=== PATIENT | female | born 1965 | race Caucasian/White ===

== ENCOUNTER 2022-01-18 12:54 | Inpatient (IN) ==
[2022-01-18 13:10] LABS: ABG BASE EXCESS 3.7 mmol/L (-2.0-2.0)
[2022-01-18 13:12] LABS: ABG HCO3 32.6 mmol/L (22-26)
--- NOTE | 2022-01-18 13:12 | DR.SOBA ---
[facility] Time Seen Time Seen by Provider: 01/18/22 13:12 Primary Care Physician Primary Care Physician: DR GOMEZ HPI Comment HPI Comment: PATIENT IS 56YR OLD FEMALE WITH HISTORY OF COPD ON HOME O2 3L/M, HTN AND DM IN ER WITH INCREASING SOB, LOW O2 SAT ON OXYGEN AND PRODUCTIVE COUGH AND CONGESTION.SPUTUM CLEAR.O2 SAT IN 60S TODAY. GENERALIZED WEAKNESS, BENOIT DYACHESAND NAUSEA PRESENT. DENIES FEVER, DYSURIA OR VOMITING. NEB TREATMENT HAVE NOT IMPROVED SYMPTOMS. Complaints Chief Complaint Doctors Comments: COUGH, CONGESTION, INCREASING SOB AND LOW O2 SATURATION ON HOME O2 X 4 DAYS. Chief Complaint:: PT C/O PROGRESSIVELY WORSENING SHORTNESS OF BREATH X 4 DAYS DESPITE WEARING HOME OXYGEN AT 3 LITERS. SHE STATES THAT WITH HER OXYGEN THIS MORNING OXYGEN SATURATION WAS 61%. PT ALSO C/O GENERALIZED BODYACHES, NAUSEA, AND PRODUCTIVE COUGH WITH CLEAR SPUTUM COVID-19 Coronavirus risk:travel/contact w/high risk person: No Has patient experienced Coronavirus symptoms: No Reviewed Nurses Notes Reviewed: Yes Source History Provided: Patient Mode of Arrival Mode of Arrival: Ambulatory Timing Onset of Chief Complaint: 01/18/22 Duration Duration: Days Context Onset:: At Rest PE Risk Factors:: None History of:: COPD Currently on:: Inhaled Bronchodilators Prehospital Care:: O2 and Inhaled B2 Modifying Factors Worsens:: Exertion and Lying Flat Improves:: Rest and Sitting Up Associated Signs and Symptoms Associated Signs and Symptoms: Wheeze, Cough, Nasal Congestion, Chest Pain and Leg Swelling If Chest Pain Quality: Pleuritic Location: Right Upper Chest, Right Lower Chest, Left Upper Chest, Left Lower Chest and Substernal PMH PMH Past Medical History: Yes Past Medical History: COPD, Diabetes, Dyslipidemia and Hypertension Past Medical History Comment: CHRONIC UTI, PVD Past Surgical History: Yes Surgical History: Cholecystectomy Past Surgical History Comment: HERNIA REPAIR, STENTS IN LEGS Family History History of Family Medical Conditions: Yes Family Medical History: Hypertension Social History Does patient currently use any type of tobacco product: Yes Have you used tobacco products in the last 12 months: Yes Type of Tobacco Use: Cigarettes Does any household member use tobacco: No Alcohol Use: None Do you use any recreational Drugs:: No Lives With: Family Lives Where: Home Travel Risk Coronavirus risk:travel/contact w/high risk person: No Has patient experienced Coronavirus symptoms: No Infectious screening In the last 2 months have you had wt loss of >10#?: NO Have you had fever, night sweats or hemotysis?: No Have you traveled outside the country in the last 6 months?: No Isolation: Standard ROS Review of Systems Constitutional: See HPI, Weakness and Fatigue Eyes: No Symptoms Reported and See HPI ENTM: See HPI, Nose Discharge and Nose Congestion Respiratoy: See HPI, Productive Cough, Short of Breath and Wheezing Cardiovascular: See HPI, Chest Pain and Edema Gastrointestinal/Abdominal: See HPI and Nausea; negative Abdominal Pain or Vomiting Genitourinary: No Symptoms Reported and See HPI; negative Dysuria Neurological: No Symptoms Reported, See HPI and Weakness; negative Headache or Dizziness Musculoskeletal: See HPI, Muscle Pain and Chest wall Integumentary: No Symptoms Reported and See HPI; negative Rash or Juandice Hematologic/Lymphatic: See HPI and Easy Bruising Endocrine: See HPI and Decreased Appetite; negative Increased Thirst or Increased Urine Psychiatric: No Symptoms Reported and See HPI All Other Systems: Reviewed and Negative PE Vital Signs Vitals: Temperature 98.1 F Pulse Rate 84 Respiratory Rate 35 Blood Pressure 119/56 O2 Sat by Pulse Oximetry 91 General General Appearance: Alert and In Distress Head Head Exam: Normal Inspection and Atraumatic Eyes Eye exam: Normal Appearance; negative Scleral Icterus or Conjunctival Injection ENT ENT Exam: Normal Oropharynx, Normal External Ear Exam and TM's Normal Bilate rally Neck Neck Exam: Normal Inspection and Trachea Midline; negative Tenderness Chest Chest Inspection: Normal Inspection and Symmetric Chest Wall Rise; negative Tenderness Respiratory Respiratory Exam: Accessory Muscle Use and Respiratory Distress; negative Chest Wall Tenderness Respiratory Exam: Bilateral: Wheezing and Bilateral: Rhonchi, Left: Wheezing and Left: Rhonchi, Right: Wheezing and Right: Rhonchi, Upper: Wheezing and Upper: Rhonchi and Lower: Wheezing and Lower: Rhonchi Cardiovascular Cardiovascular Exam: Regular Rate, Normal Rhythm and Normal Heart Sounds; neg ative Systolic Murmur or Diastolic Murmur Abdominal Exam Abdominal Exam: Normal Inspection, Normal Bowel Sounds and Soft; negative Tenderness Extremities Extremities Exam: Normal Capillary Refill and Edema Back Back Exam: Paraspinal Tenderness; negative (R) CVA Tenderness or (L) CVA Tenderness Neurologic Neurological Exam: Alert and Oriented X3; negative Motor Sensory Deficit Psychiatric Psychiatric Exam: Normal Affect and Normal Mood Skin Skin Exam: negative Rash MDM Differential Diagnosis Differential Diagnosis: Bronchitis, CHF, COPD, Dysrhythmia, Hyponatremia, Mycardial Infarction, Pneumonia, Pneumothorax, Respiratory Insufficiency, Sinusitis and URI COURSE Treatment Treatment: SEE ORDERS DONE WHILE PATIENT IN ER. LABS, EKG AND EKG DISCUSSED WITH PATIENT. NEB TREATMENT, IV SOLUMEDROL ANDD PLACED ON BIPAP. ADMITTED TO HOSPITAL. Consultation Consultation Comments: DISCHARGED PATIENT WITH MAK. HE WILL ADMIT PATIENT. Education/Counseling Education/Counseling: Patient Educated On: Diagnosis ROR Labs Reviewed Laboratory Results Reviewed?: Yes Result Diagrams: 01/21/22 05:30 01/21/22 05:30 Laboratory: 01/18/22 15:57 Sputum - Expectorated Sputum Sputum Culture - Final Stenotrophomonas Maltophilia 01/18/22 15:57 Sputum - Expectorated Sputum - Final 01/18/22 17:00 Blood Blood Culture - Preliminary 01/18/22 16:55 Blood Blood Culture - Preliminary WBC 10.2 X10^3/uL (3.6-10.0) H 01/18/22 13:05 RBC 3.37 X10^6/uL (3.5-5.4) L 01/18/22 13:05 Hgb 11.7 g/dL (12.0-16.0) L 01/18/22 13:05 Hct 34.8 % (36.0-47.0) L 01/18/22 13:05 MCV 103.3 fL (80.0-100.0) H 01/18/22 13:05 MCH 34.8 pg (27.0-34.0) H 01/18/22 13:05 MCHC 33.7 g/dL (33.0-35.0) 01/18/22 13:05 RDW 16.0 % (11.6-16.5) 01/18/22 13:05 Plt Count 192 X10^3/uL (150.0-450.0) 01/18/22 13:05 MPV 9.7 fL (7.4-11.0) 01/18/22 13:05 Neut % (Auto) 86.4 % (42.0-75.0) H 01/18/22 13:05 Lymph % (Auto) 8.0 % (21.0-51.0) L 01/18/22 13:05 [place] % (Auto) 4.9 % (0.0-13.0) 01/18/22 13:05 Eos % (Auto) 0.4 % (0.9-2.9) L 01/18/22 13:05 Baso % (Auto) 0.3 % (0.2-1.0) 01/18/22 13:05 Neut # (Auto) 8.8 x10^3/uL (2.2-4.8) H 01/18/22 13:05 Lymph # (Auto) 0.8 X10^3/uL (1.3-2.9) L 01/18/22 13:05 [place] # (Auto) 0.5 x10^3/uL (0.3-0.8) 01/18/22 13:05 Eos # (Auto) 0.0 x10^3/uL (0.0-0.2) 01/18/22 13:05 Baso # (Auto) 0.0 X10^3/uL (0.0-0.1) 01/18/22 13:05 Absolute Nucleated RBC 0.0 /100WBC 01/18/22 13:05 Sample Site Rbra 01/18/22 13:05 ABG pH 7.270 (7.35-7.45) L 01/18/22 13:05 ABG pCO2 71.0 mmHg (35.0-45.0) H* 01/18/22 13:05 ABG pO2 69.0 mmHg (80.0-100.0) L 01/18/22 13:05 ABG HCO3 32.6 mmol/L (22-26) H* 01/18/22 13:05 ABG O2 Saturation 91.0 % (90-100) 01/18/22 13:05 ABG Base Excess 3.7 mmol/L (-2.0-2.0) H 01/18/22 13:05 Marquise Test N/a 01/18/22 13:05 A-a Gradient 99.0 mmHg 01/18/22 13:05 FiO2 36.0 01/18/22 13:05 Blood Gas Comments Pt carlos well elj 01/18/22 13:05 Sodium 137 mmol/L (136-145) 01/18/22 13:05 Corrected Sodium 138 mmol/L (136-145) 01/18/22 13:05 Potassium 5.1 mmol/L (3.5-5.1) 01/18/22 13:05 Chloride 101 mmol/L (98-107) 01/18/22 13:05 Carbon Dioxide 32.7 mmol/L (21-32) H 01/18/22 13:05 BUN 58 mg/dL (7-18) H 01/18/22 13:05 Creatinine 2.60 mg/dL (0.55-1.02) H 01/18/22 13:05 Est GFR (MDRD) Af Amer 24 (>60) L 01/18/22 13:05 Est GFR (MDRD) Non-Af 20 (>60) L 01/18/22 13:05 Glucose 160 mg/dL (65-99) H 01/18/22 13:05 POC Glucose (mg/dL) 153 mg/dL (65-99) H 01/18/22 13:12 Calcium 8.7 mg/dL (8.5-10.1) 01/18/22 13:05 Corrected Calcium 9.7 mg/dL (8.5-10.1) 01/18/22 13:05 Total Bilirubin 0.40 mg/dL (0.2-1.0) 01/18/22 13:05 AST 27 Units/L (15-37) 01/18/22 13:05 ALT 38 Units/L (12-78) 01/18/22 13:05 Alkaline Phosphatase 96 Units/L (46-116) 01/18/22 13:05 Creatine Kinase 160 Units/L (26-192) 01/18/22 13:05 CK-MB (CK-2) 2.1 ng/mL (0-4.0) 01/18/22 13:05 CK/CKMB % Calc 1.3 % (<4) 01/18/22 13:05 Troponin I High Sens 8.2 ng/L (4.0-60.0) 01/18/22 13:05 B-Natriuretic Peptide 104 pg/mL (0-79) H 01/18/22 13:05 Total Protein 8.0 g/dL (6.4-8.2) 01/18/22 13:05 Albumin 2.8 g/dL (3.4-5.0) L 01/18/22 13:05 Globulin 5.2 g/dL (2.5-4.5) H 01/18/22 13:05 Albumin/Globulin Ratio 0.5 Ratio (1.1-2.1) L 01/18/22 13:05 Specimen Type Clean catch urine 01/18/22 14:00 Urine Color Yellow (YELLOW) 01/18/22 14:00 Urine Appearance Clear (CLEAR) 01/18/22 14:00 Urine pH 5.0 (5.0 - 8.0) 01/18/22 14:00 Ur Specific [place] 1.020 (1.000-1.030) 01/18/22 14:00 Urine Protein 2+ (NEGATIVE) 01/18/22 14:00 Urine Glucose (UA) Negative (NEGATIVE) 01/18/22 14:00 Urine Ketones Negative (NEGATIVE) 01/18/22 14:00 Urine Blood 1+ (NEGATIVE) 01/18/22 14:00 Urine Nitrite Negative (NEGATIVE) 01/18/22 14:00 Urine Bilirubin Negative (NEGATIVE) 01/18/22 14:00 Urine Urobilinogen 1+ (NORMAL) 01/18/22 14:00 Ur Leukocyte Esterase 1+ (NEGATIVE) 01/18/22 14:00 Urine RBC 3-5 /HPF (0-3) A 01/18/22 14:00 Urine WBC 3-5 /HPF (0-5) 01/18/22 14:00 Ur Squamous Epith Cells Few /HPF (NEGATIVE) 01/18/22 14:00 Urine Bacteria Trace /HPF (NEGATIVE) 01/18/22 14:00 Ur Culture Indicated? No/not indicated 01/18/22 14:00 SARS-CoV-2 (PCR) Negative (NEGATIVE) 01/18/22 14:40 XRAY XRAY Interpreted by: Radiologist (REPORT NOTED.) and Self EKG Rate: 87 [place]: Normal Rhythm: NSR Block: RBBB Hypertrophy: None ST: Nonsp Opioid Opioid Risk Tool Age (Daniel box if 16-45): No History of Preadolescent Sexual Abuse: No Total: 0 Total Score Risk Category: Low Risk Copyright: [facility] predicting aberrant behaviors Diagnosis Discharge Problem: Acute respiratory distress, Hypercapnemia, Acute renal insufficiency, COPD exacerbation Pneumonia Qualifiers: Pneumonia type: due to unspecified organism Laterality: bilateral Lung location: lower lobe of lung Qualified Code(s): J18.9 - Pneumonia, unspecified organism CHF (congestive heart failure) Qualifiers: Heart failure type: combined systolic and diastolic Heart failure chronicity: acute on chronic Qualified Code(s): I50.43 - Acute on chronic combined systolic (congestive) and diastolic (congestive) heart failure
[2022-01-18] MEDS ORDERED: SOLU-Medrol 125 MG VIAL IVP ONE (14:02)
[2022-01-18] MEDS ORDERED: DUONEB 0.5 MG/3 MG (3 mL) NEB ONE ×2 (14:03→19:21)
[2022-01-18] MEDS ORDERED: SOLU-Medrol 125 MG VIAL ONE (14:08)
[2022-01-18 14:10] LABS: BASOPHILS % (AUTO) 0.3 % (0.2-1.0); EOSINOPHILS % (AUTO) 0.4 % (0.9-2.9); HEMATOCRIT 34.8 % (36.0-47.0); HEMOGLOBIN 11.7 g/dL (12.0-16.0); LYMPHOCYTES # (AUTO) 0.8 X10^3/uL (1.3-2.9); MEAN CORPUSCULAR HEMOGLOBIN 34.8 pg (27.0-34.0); MEAN CORPUSCULAR HGB CONC 33.7 g/dL (33.0-35.0); MEAN CORPUSCULAR VOLUME 103.3 fL (80.0-100.0); MEAN PLATELET VOLUME 9.7 fL (7.4-11.0); MONOCYTES # (AUTO) 0.5 x10^3/uL (0.3-0.8); MONOCYTES % (AUTO) 4.9 % (0.0-13.0); NEUTROPHILS # (AUTO) 8.8 x10^3/uL (2.2-4.8); NEUTROPHILS % (AUTO) 86.4 % (42.0-75.0); RED BLOOD COUNT 3.37 X10^6/uL (3.5-5.4); WHITE BLOOD COUNT 10.2 X10^3/uL (3.6-10.0)
[2022-01-18 14:27] LABS: BILIRUBIN,URINE NEGATIVE (NEGATIVE); BLOOD/HEMOGLOBIN,URINE 1+ (NEGATIVE); GLUCOSE, URINE NEGATIVE (NEGATIVE); KETONES,URINE NEGATIVE (NEGATIVE); LEUKOCYTE ESTERASE ,URINE 1+ (NEGATIVE); NITRITES,URINE NEGATIVE (NEGATIVE); PROTEIN,URINE 2+ (NEGATIVE); UROBILINOGEN,URINE 1+ (NORMAL)
[2022-01-18 14:29] LABS: ALBUMIN 2.8 g/dL (3.4-5.0); CALCIUM 8.7 mg/dL (8.5-10.1); CARBON DIOXIDE 32.7 mmol/L (21-32); CKMB % 1.3 % (<4); COR CA(FOR HYPOALB) 9.7 mg/dL (8.5-10.1); CREATINE KINASE MB 2.1 ng/mL (0-4.0); CREATININE 2.6 mg/dL (0.55-1.02)
[2022-01-18 14:35] LABS: APPEARANCE,URINE CLEAR (CLEAR); BACTERIA,URINE TRACE /HPF (NEGATIVE); COLOR,URINE YELLOW (YELLOW); SQUAMOUS EPITHELIAL CELL,UR FEW /HPF (NEGATIVE)
--- NOTE | 2022-01-18 15:15 | RAD ---
HISTORYSOBSTUDYCHEST, 1 [id number]/13/2021FINDINGSThe cardiomediastinal silhouette is widened but stable. Bilateral pulmonary vascular prominence and airspace opacities. No pneumothorax or effusion. The bony thorax appears intact.IMPRESSIONBy bilateral airspace opacities which may reflect edema or pneumonia. Recommend follow-up to resolution.Electronically signed by: GRANT KING (Jan 18, 2022 15:14:00)
[2022-01-18] MEDS ORDERED: K-DUR TAB 20 MEQ PO ONE (16:07)
[2022-01-18] MEDS ORDERED: ROCEPHIN VIAL 1 GRAM ONE (16:30)
[2022-01-18] MEDS ORDERED: LASIX IVP ONE (16:35)
[2022-01-18] MEDS: KLOR-CON PO ONE ×2 (16:43→16:45)
[2022-01-18] MEDS: ROCEPHIN 1 GRAM IV PREMIX 1 G/50 ML IV.SOLN. IV ONE ×2 (16:45→17:21)
[2022-01-18] MEDS: NS 1,000 ML IV 1,000 ML IV SCH (17:59)
[2022-01-18] MEDS ORDERED: DUONEB 0.5 MG/3 MG (3 mL) NEB SCH (18:00)
[2022-01-18] MEDS: ZITHROMAX INJ 500 MG VIAL 500 MG in NS 250 ML IV 250 ML IV SCH (18:57)
[2022-01-18] MEDS ORDERED: PULMICORT NEB TX 0.5 MG NEB ONE (19:21)
[2022-01-18 19:37] LABS: CREATINE KINASE MB 1.3 ng/mL (0-4.0)
[2022-01-18 19:38] LABS: BILIRUBIN,URINE NEGATIVE (NEGATIVE); BLOOD/HEMOGLOBIN,URINE 1+ (NEGATIVE); GLUCOSE, URINE NEGATIVE (NEGATIVE); KETONES,URINE NEGATIVE (NEGATIVE); LEUKOCYTE ESTERASE ,URINE NEGATIVE (NEGATIVE); NITRITES,URINE NEGATIVE (NEGATIVE); PROTEIN,URINE 2+ (NEGATIVE); UROBILINOGEN,URINE NORMAL (NORMAL)
[2022-01-18 19:43] LABS: APPEARANCE,URINE CLEAR (CLEAR); COLOR,URINE YELLOW (YELLOW)
[2022-01-18 19:45] LABS: BACTERIA,URINE NEGATIVE /HPF (NEGATIVE); GRANULAR CASTS,URINE FEW /LPF (NEGATIVE); RBC,URINE 0-2 /HPF (0-3); SQUAMOUS EPITHELIAL CELL,UR RARE /HPF (NEGATIVE)
[2022-01-18] MEDS: DUONEB 0.5 MG/3 MG (3 mL) NEB SCH (20:00)
[2022-01-18] MEDS: PULMICORT NEB TX 0.5 MG NEB SCH (20:00)
[2022-01-18] MEDS ORDERED: PULMICORT NEB TX 0.5 MG NEB SCH (21:00)
[2022-01-18] MEDS: ROBITUSSIN DM PO SCH (22:10)
[2022-01-19] MEDS: DUONEB 0.5 MG/3 MG (3 mL) NEB SCH ×6 (00:15→21:40)
[2022-01-19 01:44] LABS: CKMB % 1.2 % (<4); CREATINE KINASE MB 1.1 ng/mL (0-4.0)
[2022-01-19 05:23] LABS: BASOPHILS % (AUTO) 0.1 % (0.2-1.0); HEMATOCRIT 35.8 % (36.0-47.0); HEMOGLOBIN 11.9 g/dL (12.0-16.0); LYMPHOCYTES # (AUTO) 0.6 X10^3/uL (1.3-2.9); LYMPHOCYTES % (AUTO) 6.4 % (21.0-51.0); MEAN CORPUSCULAR HEMOGLOBIN 34.7 pg (27.0-34.0); MEAN CORPUSCULAR HGB CONC 33.3 g/dL (33.0-35.0); MEAN CORPUSCULAR VOLUME 104.1 fL (80.0-100.0); MEAN PLATELET VOLUME 9.7 fL (7.4-11.0); MONOCYTES # (AUTO) 0.4 x10^3/uL (0.3-0.8); MONOCYTES % (AUTO) 4.1 % (0.0-13.0); NEUTROPHILS # (AUTO) 8.7 x10^3/uL (2.2-4.8); NEUTROPHILS % (AUTO) 89.4 % (42.0-75.0); RED BLOOD COUNT 3.44 X10^6/uL (3.5-5.4); RED CELL DISTRIBUTION WIDTH 15.7 % (11.6-16.5); WHITE BLOOD COUNT 9.7 X10^3/uL (3.6-10.0)
[2022-01-19 05:40] LABS: ALANINE AMINOTRANSFERASE 39 Units/L (12-78); ALBUMIN 2.7 g/dL (3.4-5.0); ALKALINE PHOSPHATASE 107 Units/L (46-116); ASPARTATE AMINO TRANSFERASE 24 Units/L (15-37); BLOOD UREA NITROGEN 55 mg/dL (7-18); CALCIUM 8.9 mg/dL (8.5-10.1); CHLORIDE 104 mmol/L (98-107); COR CA(FOR HYPOALB) 9.9 mg/dL (8.5-10.1); CREATININE 1.91 mg/dL (0.55-1.02); SODIUM 142 mmol/L (136-145); TOTAL PROTEIN 8.1 g/dL (6.4-8.2); eGFR NON BLACK RACES 29 (>60)
[2022-01-19 05:50] LABS: ABG BASE EXCESS 6.8 mmol/L (-2.0-2.0)
[2022-01-19 05:52] LABS: ABG ALLEN TEST POS
[2022-01-19 08:03] LABS: ABG BASE EXCESS 8.3 mmol/L (-2.0-2.0)
[2022-01-19 08:06] LABS: ABG ALLEN TEST POS; ABG HCO3 38.6 mmol/L (22-26)
[2022-01-19] MEDS ORDERED: ZESTRIL TAB 20 MG ONE (09:00)
[2022-01-19] MEDS ORDERED: ROCEPHIN 1 GRAM IV PREMIX 1 G/50 ML IV.SOLN. IV SCH (09:00)
[2022-01-19] MEDS: LOVENOX INJ 30 MG SYR SC SCH (09:26)
[2022-01-19] MEDS: PLAVIX PO SCH (09:26)
[2022-01-19] MEDS: LASIX IVP SCH (09:26)
[2022-01-19] MEDS: VSL#3 PO SCH (09:27)
[2022-01-19] MEDS: ROBITUSSIN DM PO SCH ×4 (09:27→21:05)
[2022-01-19] MEDS: PROTONIX INJ 40 MG VIAL IVP SCH (09:27)
[2022-01-19] MEDS: ROCEPHIN VIAL 1 GRAM 1 G in NS 100 ML IV 100 ML IV SCH (09:27)
[2022-01-19] MEDS: ZITHROMAX INJ 500 MG VIAL 500 MG in NS 250 ML IV 250 ML IV SCH (09:28)
[2022-01-19] MEDS: ZESTRIL TAB 20 MG PO SCH (09:28)
[2022-01-19] MEDS: PULMICORT NEB TX 0.5 MG NEB SCH ×2 (09:45→21:40)
[2022-01-19] MEDS: SOLU-Medrol 40 MG VIAL IVP SCH ×2 (14:12→21:05)
[2022-01-19] MEDS: SNACK - Diabetic Appropriate PO SCH (20:05)
[2022-01-19] MEDS: NS 1,000 ML IV 1,000 ML IV SCH (21:06)
[2022-01-20] MEDS: DUONEB 0.5 MG/3 MG (3 mL) NEB SCH ×6 (01:00→21:40)
[2022-01-20] MEDS: SOLU-Medrol 40 MG VIAL IVP SCH ×3 (05:23→21:34)
[2022-01-20 06:08] LABS: BASOPHILS % (AUTO) 0.2 % (0.2-1.0); HEMATOCRIT 37.4 % (36.0-47.0); HEMOGLOBIN 12.5 g/dL (12.0-16.0); LYMPHOCYTES # (AUTO) 0.6 X10^3/uL (1.3-2.9); LYMPHOCYTES % (AUTO) 6.5 % (21.0-51.0); MEAN CORPUSCULAR HEMOGLOBIN 34.6 pg (27.0-34.0); MEAN CORPUSCULAR HGB CONC 33.5 g/dL (33.0-35.0); MEAN CORPUSCULAR VOLUME 103.5 fL (80.0-100.0); MEAN PLATELET VOLUME 9.3 fL (7.4-11.0); MONOCYTES # (AUTO) 0.3 x10^3/uL (0.3-0.8); NEUTROPHILS # (AUTO) 7.7 x10^3/uL (2.2-4.8); NEUTROPHILS % (AUTO) 89.3 % (42.0-75.0); RED BLOOD COUNT 3.61 X10^6/uL (3.5-5.4); RED CELL DISTRIBUTION WIDTH 15.9 % (11.6-16.5); WHITE BLOOD COUNT 8.7 X10^3/uL (3.6-10.0)
[2022-01-20 06:46] LABS: ALBUMIN 2.7 g/dL (3.4-5.0); CALCIUM 9.3 mg/dL (8.5-10.1); CARBON DIOXIDE 35.8 mmol/L (21-32); COR CA(FOR HYPOALB) 10.3 mg/dL (8.5-10.1); CREATININE 1.24 mg/dL (0.55-1.02); TOTAL PROTEIN 8.2 g/dL (6.4-8.2)
[2022-01-20] MEDS: NS 1,000 ML IV 1,000 ML IV SCH ×2 (07:37→13:28)
[2022-01-20] MEDS ORDERED: ZESTRIL TAB 20 MG ONE (07:54)
[2022-01-20 07:58] LABS: ABG BASE EXCESS 18.4 mmol/L (-2.0-2.0)
--- NOTE | 2022-01-20 07:58 | RAD ---
HISTORYRESP DISTRESS, PNEUMONIA FOLLOW UPSTUDYCHEST, 1 [id number]/20/2022.TECHNIQUEAP view of the chestFINDINGSThe cardiac silhouette is stably enlarged. Mediastinal contours appear stable. Mildly improved appearance of right mid to lower lung airspace opacities. Airspace opacities in the left mid to lower lung appears similar. Blunted left costophrenic sulcus. No pneumothorax. Soft tissue attenuation limits evaluation.IMPRESSIONInterval improvement in right lung pneumonia. Recommend continued follow-up as airspace opacities appear similar on the left. Suspect small left pleural effusion.Electronically signed by: Yao Gudino (Jan 20, 2022 07:57:06)
[2022-01-20 08:00] LABS: ABG HCO3 44.5 mmol/L (22-26)
[2022-01-20 08:01] LABS: ABG ALLEN TEST POS
[2022-01-20] MEDS: LASIX IVP SCH (08:08)
[2022-01-20] MEDS: PROTONIX INJ 40 MG VIAL IVP SCH (08:08)
[2022-01-20] MEDS: LOVENOX INJ 30 MG SYR SC SCH (08:08)
[2022-01-20] MEDS: PLAVIX PO SCH (08:09)
[2022-01-20] MEDS: VSL#3 PO SCH (08:09)
[2022-01-20] MEDS: ROBITUSSIN DM PO SCH ×4 (08:09→20:52)
[2022-01-20] MEDS: ZESTRIL TAB 20 MG PO SCH (08:09)
[2022-01-20] MEDS: ROCEPHIN VIAL 1 GRAM 1 G in NS 100 ML IV 100 ML IV SCH (08:10)
[2022-01-20] MEDS: ZITHROMAX INJ 500 MG VIAL 500 MG in NS 250 ML IV 250 ML IV SCH (08:10)
[2022-01-20] MEDS: PULMICORT NEB TX 0.5 MG NEB SCH ×2 (09:00→21:40)
[2022-01-20] MEDS ORDERED: KAYEXALATE SUSP PO NR (09:00)
--- NOTE | 2022-01-20 19:00 | DR.H&P ---
H&P - History & Physical for Day of: H&P Date: 01/18/22 - Chief Complaint Chief Complaint: SOB - History of Present Illness History of Present Illness: PT IS 56 WF, WITH NO LOCAL DR, ER ADMISSION AFTER PRESENTING WITH C/O PROGRESSIVELY WORSENING SHORTNESS OF BREATH X 4 DAYS DESPITE WEARING HOME OXYGEN AT 3 LITERS. SHE STATES THAT WITH HER OXYGEN THIS MORNING OXYGEN SATURATION WAS 61%. PT ALSO C/O GENERALIZED BODYACHES, NAUSEA, AND PRODUCTIVE COUGH. PT HAS PMH OF COPD, HTN, OA, AND DM. PT ADMITTED FOR TREATMENT OF ACUTE ILLNESS. - Past Medical History Past Medical History: Arthritis, COPD, Diabetes, Dyslipidemia, Hypertension - Past Surgical History Surgical History: Angioplasty/Stents - Family History Family Medical History: Hypertension - Social History Does patient currently use any type of tobacco product: Yes Have you used tobacco products in the last 12 months: Yes Type of Tobacco Use: Cigarettes How many years tobacco product used: 25 Does any household member use tobacco: No Alcohol Use: None - Medications Home Medications: sodium phosphate [From Fleet Enema] Allergy (Verified 09/02/19 21:15) CONTINUE taking the following medications clopidogrel 75 mg tablet 75 mg PO DAILY 01/18/22 [History] fenofibrate 160 mg tablet 160 mg PO DAILY 01/18/22 [History] lovastatin 20 mg tablet 20 mg PO DAILY 01/18/22 [History] - Review of Systems Constitutional: Weakness, Malaise Eyes: No Symptoms Reported ENT: No Symptoms Reported Respiratory: Cough, Shortness of Breath, Sputum, Wheezing Cardiovascular: Palpitations, Edema Gastrointestinal: Diarrhea Genitourinary: No Symptoms Reported Musculoskeletal: Back Pain Skin: No Symptoms Reported Neurological: No Symptoms Reported - Physical Exam Vital Signs: Temperature 98.6 F Pulse Rate [Right Brachial] 86 Pulse Rate 119 Respiratory Rate 24 Blood Pressure [Right Arm] 122/68 Blood Pressure 119/56 O2 Sat by Pulse Oximetry 93 Oriented: Normal Eyes: Normal Ear: Normal Nose: Normal Respiratory: Diminished Throughout, Wheezes Throughout Cardiovascular: Tachycardia, Edema : Normal Auscultation: Bowel Sounds: Normal Palpation: Normal Skin: Decreased [place], Red (MILD BILATERAL ANTERIOR LOWER EXTREMITY TENDERNESS) Musculoskeletal: Back:Lumbar Psychiatric: Anxiety Affect: Anxious Speech Pattern: Clear, Appropriate - Assessment/Plan (1) Acute respiratory failure Status: Acute Plan: ADMIT, ABG ON ADMISSION. EKG AND BP MONITORING, CARDIAC ENZYMES. GENTLE IV HYDRATION, STRICT I&OS. BS CONTROL, IV SOLU MEDROL, VERIFY HOME MEDICATION. BIPAP PRN, RESP THERAPY AND SUPPLEMENTAL O2. IV ATBX THERAPY (2) COPD (chronic obstructive pulmonary disease) Status: Acute (3) Diabetes Status: Acute (4) Degenerative lumbar spinal stenosis Status: Acute - Allergies Allergies/Adverse Reactions: Allergies Allergy/AdvReac Type Severity Reaction Status Date / Time sodium phosphate Allergy Verified 09/02/19 21:15 [From Fleet Enema]
[2022-01-20] MEDS: SNACK - Diabetic Appropriate PO SCH ×2 (20:30→20:52)
[2022-01-21] MEDS: DUONEB 0.5 MG/3 MG (3 mL) NEB SCH ×6 (01:50→20:58)
[2022-01-21] MEDS: NS 1,000 ML IV 1,000 ML IV SCH (03:19)
[2022-01-21] MEDS: SOLU-Medrol 40 MG VIAL IVP SCH ×3 (05:50→21:57)
[2022-01-21 05:58] LABS: BASOPHILS % (AUTO) 0.3 % (0.2-1.0); HEMOGLOBIN 13.5 g/dL (12.0-16.0); LYMPHOCYTES # (AUTO) 0.7 X10^3/uL (1.3-2.9); MEAN CORPUSCULAR HEMOGLOBIN 34.6 pg (27.0-34.0); MEAN CORPUSCULAR HGB CONC 33.8 g/dL (33.0-35.0); MEAN CORPUSCULAR VOLUME 102.3 fL (80.0-100.0); MEAN PLATELET VOLUME 8.9 fL (7.4-11.0); MONOCYTES # (AUTO) 0.4 x10^3/uL (0.3-0.8); MONOCYTES % (AUTO) 5.6 % (0.0-13.0); NEUTROPHILS # (AUTO) 6.2 x10^3/uL (2.2-4.8); NEUTROPHILS % (AUTO) 85.1 % (42.0-75.0); RED BLOOD COUNT 3.91 X10^6/uL (3.5-5.4); RED CELL DISTRIBUTION WIDTH 15.7 % (11.6-16.5); WHITE BLOOD COUNT 7.3 X10^3/uL (3.6-10.0)
[2022-01-21 06:08] LABS: ALBUMIN 2.9 g/dL (3.4-5.0); CALCIUM 9.5 mg/dL (8.5-10.1); CARBON DIOXIDE 40.4 mmol/L (21-32); COR CA(FOR HYPOALB) 10.4 mg/dL (8.5-10.1); CREATININE 1.26 mg/dL (0.55-1.02); TOTAL PROTEIN 8.4 g/dL (6.4-8.2)
[2022-01-21 06:33] LABS: ABG BASE EXCESS 22.4 mmol/L (-2.0-2.0)
[2022-01-21 06:34] LABS: ABG ALLEN TEST POS; ABG HCO3 51.1 mmol/L (22-26)
--- NOTE | 2022-01-21 06:56 | RAD ---
HISTORYFollow-up pneumoniaSTUDYChest AP [id number]/22/2022FINDINGSThe heart is enlarged. No congestive heart failure is noted. The franco are normal. The lung romero appear free of acute infiltrates. No pleural effusions are identified. Bony thorax is unremarkable.IMPRESSIONMild cardiomegaly without congestive heart failureLungs now clearElectronically signed by: GRANT KING (Jan 21, 2022 06:55:29)
[2022-01-21] MEDS ORDERED: ZESTRIL TAB 20 MG ONE (08:14)
[2022-01-21] MEDS: ZESTRIL TAB 20 MG PO SCH (08:36)
[2022-01-21] MEDS: LASIX IVP SCH ×2 (08:36→21:00)
[2022-01-21] MEDS: PROTONIX INJ 40 MG VIAL IVP SCH (08:36)
[2022-01-21] MEDS: ROCEPHIN VIAL 1 GRAM 1 G in NS 100 ML IV 100 ML IV SCH (08:37)
[2022-01-21] MEDS: ROBITUSSIN DM PO SCH ×4 (08:37→21:56)
[2022-01-21] MEDS: VSL#3 PO SCH (08:37)
[2022-01-21] MEDS: ZITHROMAX INJ 500 MG VIAL 500 MG in NS 250 ML IV 250 ML IV SCH (08:37)
[2022-01-21] MEDS: LOVENOX INJ 30 MG SYR SC SCH (08:37)
[2022-01-21] MEDS: PLAVIX PO SCH (08:38)
[2022-01-21] MEDS: PULMICORT NEB TX 0.5 MG NEB SCH ×2 (09:10→20:59)
[2022-01-21] MEDS ORDERED: NS 1/2 1,000 ML IV 1,000 ML IV ONE (09:49)
[2022-01-21] MEDS: NS 1/2 1,000 ML IV 1,000 ML IV SCH (09:52)
[2022-01-21] MEDS: LEVAQUIN PREMIX IV 500 MG 500 MG/100 ML BAG IV SCH (09:52)
--- NOTE | 2022-01-21 10:51 | CT ---
HISTORYSHORT OF BREATH, RESP FAILURE, COPDSTUDYCT chest with IV contrastCOMPARISONX-ray 01/21/[address] 09/11/2020TECHNIQUEMultiple axial images of the chest were obtained from the thoracic inlet to the upper abdomenwith the administration of IV contrast. Sagittal and coronal reformations are performed. Dose reduction techniques including Automated Exposure Control (AEC) and adjustment of mA and kV were utilized.FINDINGSThere is CHF and mild pulmonary edema. There is underlying mild COPD. Small grouping of tiny nodules is seen in the inferior right upper lobe near the minor fissure. In the left lung apex there are 2 tiny nodules measuring approximately 5 mm in size. Areas of atelectasis are seen in the CP angles and left lingula. No pneumothorax or pleural effusion is seen.Multiple small mediastinal lymph nodes are seen. There are mildly enlarged hilar lymph nodes that measure less than 1 cm in the short axis, also. No pericardial effusion is seen. Thoracic aorta is normal in size without evidence of dissection. A dedicated pulmonary embolus exam is not performed but 3D MIP reconstructions are performed and no pulmonary embolus is identified.There is a hepatosplenomegaly and fatty infiltration of the liver. Prior cholecystectomy. Slight fullness of the adrenal glands may be adrenal hyperplasia. Probable extrarenal pelves are present.IMPRESSIONCHF and mild pulmonary edema.Small grouping of tiny nodules is seen in the inferior right upper lobe with 2 small nodules in the left lung apex. These are not seen on prior CT.Increased number of small mediastinal lymph nodes is seen with mild hilar lymphadenopathy. This appearance is similar to prior CT.Recommend follow-up chest CT in 6 months time to assure no change in the nodules.Electronically signed by: Ghassan Benito (Jan 21, 2022 10:50:32)
--- NOTE | 2022-01-21 10:59 | CT ---
HISTORYL SPINE DDD, LOWER EXT WEAKNESSSTUDYCT lumbar spine without IV contrastCOMPARISONCT abdomen 09/11/2020TECHNIQUEMultiple axial images of the lumbar spine were obtained from the thoracolumbar junction to the sacrum without the administration of IV contrast. Sagittal and coronal reformats were performed and reviewed. Dose reduction techniques including Automated Exposure Control (AEC) and adjustment of mA and kV were utilized.FINDINGSThere is mild dextroscoliosis in the mid lumbar spine, similar to prior study. Small lateral osteophytes are seen in the mid to lower thoracic spine. Motion slightly limits the study. There is artifactual appearance of spondylolisthesis of L2 with respect L1 and L3 due to the motion.No compression fracture or disc space narrowing is seen. There is no pars defect. Likely mild central disc bulges are present at L3-4 and L4-5 with mild posterior element hypertrophy causing mild thecal sac effacement. No bony central canal or neural foraminal stenosis is seen. There is right-sided nephrolithiasis and a parapelvic cyst on the right.IMPRESSIONMotion limits the study. Likely mild disc bulges are present at L3-4 and L4-5 with little thecal sac effacement.Right-sided nephrolithiasis is seen without evidence of hydronephrosis.Electronically signed by: Ghassan Benito (Jan 21, 2022 10:57:30)
--- NOTE | 2022-01-21 13:54 | CT ---
HISTORYCONFUSIONSTUDYBRAIN W/O CONCOMPARISONNone availableTECHNIQUEMultiple helical images of the brain from the vertex to the occiput were obtained. Coronal and sagittal reformats were performed. Dose reduction techniques including Automated Exposure Control (AEC) and adjustment of mA and kV were utilized.FINDINGS[No acute intraparenchymal hemorrhage or mass can be identified.] [No extra-axial fluid collections are seen.] [No alteration in the attenuation of the brain parenchyma can be identified to suggest acute or subacute ischemic change.] [The ventricular system is symmetric and nondilated.] [The extracranial structures are grossly unremarkable.]IMPRESSIONNo acute intracranial process identified.Electronically signed by: ROSELINE SHORE (Jan 21, 2022 13:53:28)
[2022-01-22] MEDS: DUONEB 0.5 MG/3 MG (3 mL) NEB SCH ×6 (00:17→20:15)
[2022-01-22 05:07] LABS: BASOPHILS % (AUTO) 0.2 % (0.2-1.0); HEMATOCRIT 40.4 % (36.0-47.0); HEMOGLOBIN 13.8 g/dL (12.0-16.0); LYMPHOCYTES # (AUTO) 0.6 X10^3/uL (1.3-2.9); LYMPHOCYTES % (AUTO) 6.8 % (21.0-51.0); MEAN CORPUSCULAR HEMOGLOBIN 34.2 pg (27.0-34.0); MEAN CORPUSCULAR HGB CONC 34.1 g/dL (33.0-35.0); MEAN CORPUSCULAR VOLUME 100.4 fL (80.0-100.0); MONOCYTES # (AUTO) 0.4 x10^3/uL (0.3-0.8); MONOCYTES % (AUTO) 4.8 % (0.0-13.0); NEUTROPHILS # (AUTO) 7.7 x10^3/uL (2.2-4.8); NEUTROPHILS % (AUTO) 88.2 % (42.0-75.0); RED BLOOD COUNT 4.03 X10^6/uL (3.5-5.4); RED CELL DISTRIBUTION WIDTH 15.6 % (11.6-16.5); WHITE BLOOD COUNT 8.7 X10^3/uL (3.6-10.0)
[2022-01-22 05:22] LABS: CALCIUM 9.5 mg/dL (8.5-10.1); CARBON DIOXIDE 36.2 mmol/L (21-32); COR CA(FOR HYPOALB) 10.3 mg/dL (8.5-10.1); CREATININE 1.22 mg/dL (0.55-1.02); TOTAL PROTEIN 8.3 g/dL (6.4-8.2)
[2022-01-22] MEDS: SOLU-Medrol 40 MG VIAL IVP SCH ×3 (06:19→21:10)
[2022-01-22] MEDS ORDERED: ZESTRIL TAB 20 MG ONE (08:52)
[2022-01-22 08:56] LABS: ABG HCO3 37.3 mmol/L (22-26)
[2022-01-22] MEDS: ZESTRIL TAB 20 MG PO SCH (09:28)
[2022-01-22] MEDS: LOVENOX INJ 30 MG SYR SC SCH (09:29)
[2022-01-22] MEDS: LASIX IVP SCH ×2 (09:29→17:02)
[2022-01-22] MEDS: NS 1/2 1,000 ML IV 1,000 ML IV SCH (09:29)
[2022-01-22] MEDS: LEVAQUIN PREMIX IV 500 MG 500 MG/100 ML BAG IV SCH (09:29)
[2022-01-22] MEDS: PLAVIX PO SCH (09:30)
[2022-01-22] MEDS: PULMICORT NEB TX 0.5 MG NEB SCH ×2 (09:30→20:15)
[2022-01-22] MEDS: ROBITUSSIN DM PO SCH ×4 (09:30→21:09)
[2022-01-22] MEDS: PROTONIX INJ 40 MG VIAL IVP SCH (09:30)
[2022-01-22] MEDS: ROCEPHIN VIAL 1 GRAM 1 G in NS 100 ML IV 100 ML IV SCH (09:30)
[2022-01-22] MEDS: VSL#3 PO SCH (09:30)
--- NOTE | 2022-01-22 15:15 | RAD ---
HISTORYCOPD, CHFSTUDYCHEST, 1 VIEWCOMPARISONJune 2021TECHNIQUEChest radiographic imaging, AP portable projection, 1 imageFINDINGSNo cardiomegaly.Mild prominence of the interstitial markings.No focal airspace disease.No pleural effusion.No pneumothorax.No acute osseous abnormality.IMPRESSIONNo significant interval acute cardiopulmonary changes.Electronically signed by: Ramon Dickey (Jan 22, 2022 15:15:12)
[2022-01-22] MEDS: SNACK - Diabetic Appropriate PO SCH (21:09)
[2022-01-22] MEDS: NovoLIN R (or HumuLIN R) SUBCUT PRN (21:10)
[2022-01-23] MEDS: DUONEB 0.5 MG/3 MG (3 mL) NEB SCH ×6 (00:05→21:36)
[2022-01-23 04:30] LABS: BASOPHILS % (AUTO) 0.3 % (0.2-1.0); EOSINOPHILS % (AUTO) 0.1 % (0.9-2.9); HEMATOCRIT 43.7 % (36.0-47.0); HEMOGLOBIN 14.8 g/dL (12.0-16.0); LYMPHOCYTES # (AUTO) 0.6 X10^3/uL (1.3-2.9); LYMPHOCYTES % (AUTO) 4.9 % (21.0-51.0); MEAN CORPUSCULAR HEMOGLOBIN 33.7 pg (27.0-34.0); MEAN CORPUSCULAR HGB CONC 33.8 g/dL (33.0-35.0); MEAN CORPUSCULAR VOLUME 99.8 fL (80.0-100.0); MEAN PLATELET VOLUME 8.9 fL (7.4-11.0); MONOCYTES # (AUTO) 0.5 x10^3/uL (0.3-0.8); MONOCYTES % (AUTO) 3.8 % (0.0-13.0); NEUTROPHILS # (AUTO) 11.8 x10^3/uL (2.2-4.8); NEUTROPHILS % (AUTO) 90.9 % (42.0-75.0); RED BLOOD COUNT 4.38 X10^6/uL (3.5-5.4); RED CELL DISTRIBUTION WIDTH 15.5 % (11.6-16.5)
[2022-01-23 05:11] LABS: ABG BASE EXCESS 19.1 mmol/L (-2.0-2.0)
[2022-01-23 05:12] LABS: ABG ALLEN TEST POS; ABG HCO3 46.6 mmol/L (22-26)
[2022-01-23 05:36] LABS: ALBUMIN 3.2 g/dL (3.4-5.0); CALCIUM 9.7 mg/dL (8.5-10.1); CARBON DIOXIDE 35.1 mmol/L (21-32); COR CA(FOR HYPOALB) 10.3 mg/dL (8.5-10.1); CREATININE 1.55 mg/dL (0.55-1.02); TOTAL PROTEIN 8.6 g/dL (6.4-8.2)
[2022-01-23 05:38] LABS: BAND NEUTROPHILS % 2 % (0-10); METAMYELOCYTES % 1; PLATELET MORPHOLOGY COMMENT NORMAL (NORMAL)
[2022-01-23] MEDS: NovoLIN R (or HumuLIN R) SUBCUT PRN ×2 (05:59→21:40)
[2022-01-23] MEDS: SOLU-Medrol 40 MG VIAL IVP SCH ×3 (05:59→21:40)
--- NOTE | 2022-01-23 07:03 | RAD ---
HISTORYSOBSTUDYAP [id number]/24/2022FINDINGSThere is no change in appearance of the chest. Heart size remains normal. There is no evidence for developing airspace disease/pneumonia or atelectasis or pleural fluid.IMPRESSIONNo change/new abnormality since 1 day prior.Electronically signed by: CRISTIAN HERNANDEZ (Jan 23, 2022 07:02:25)
[2022-01-23] MEDS ORDERED: DUONEB 0.5 MG/3 MG (3 mL) NEB ONE (08:03)
[2022-01-23] MEDS: PULMICORT NEB TX 0.5 MG NEB SCH ×2 (08:40→21:36)
[2022-01-23] MEDS ORDERED: ZESTRIL TAB 20 MG ONE (08:58)
[2022-01-23] MEDS: ROCEPHIN VIAL 1 GRAM 1 G in NS 100 ML IV 100 ML IV SCH (09:33)
[2022-01-23] MEDS: ROBITUSSIN DM PO SCH ×4 (09:34→21:40)
[2022-01-23] MEDS: PLAVIX PO SCH (09:34)
[2022-01-23] MEDS: PROTONIX INJ 40 MG VIAL IVP SCH (09:34)
[2022-01-23] MEDS: VSL#3 PO SCH (09:34)
[2022-01-23] MEDS: ZESTRIL TAB 20 MG PO SCH (09:35)
[2022-01-23] MEDS: LOVENOX INJ 30 MG SYR SC SCH (09:35)
[2022-01-23] MEDS: LASIX IVP SCH ×2 (09:39→16:48)
[2022-01-23] MEDS: LEVAQUIN PREMIX IV 500 MG 500 MG/100 ML BAG IV SCH (11:10)
[2022-01-23] MEDS ORDERED: NS 1/2 1,000 ML IV 1,000 ML IV ONE (14:05)
[2022-01-23] MEDS: NS 1/2 1,000 ML IV 1,000 ML IV SCH (14:13)
[2022-01-23] MEDS: SNACK - Diabetic Appropriate PO SCH (21:07)
[2022-01-24] MEDS: DUONEB 0.5 MG/3 MG (3 mL) NEB SCH ×6 (00:10→21:05)
[2022-01-24 05:09] LABS: HEMOGLOBIN 14.5 g/dL (12.0-16.0); MEAN CORPUSCULAR HEMOGLOBIN 33.5 pg (27.0-34.0); NEUTROPHILS % (AUTO) 91.7 % (42.0-75.0); WHITE BLOOD COUNT 11.6 X10^3/uL (3.6-10.0)
[2022-01-24 05:18] LABS: BASOPHILS % (AUTO) 0.2 % (0.2-1.0); EOSINOPHILS % (AUTO) 0.2 % (0.9-2.9); HEMATOCRIT 43.2 % (36.0-47.0); LYMPHOCYTES # (AUTO) 0.6 X10^3/uL (1.3-2.9); MEAN CORPUSCULAR HGB CONC 33.6 g/dL (33.0-35.0); MEAN CORPUSCULAR VOLUME 99.9 fL (80.0-100.0); MONOCYTES # (AUTO) 0.3 x10^3/uL (0.3-0.8); MONOCYTES % (AUTO) 2.9 % (0.0-13.0); NEUTROPHILS # (AUTO) 10.7 x10^3/uL (2.2-4.8); RED BLOOD COUNT 4.33 X10^6/uL (3.5-5.4); RED CELL DISTRIBUTION WIDTH 15.8 % (11.6-16.5)
[2022-01-24 05:33] LABS: ALBUMIN 3.1 g/dL (3.4-5.0); CALCIUM 9.3 mg/dL (8.5-10.1); CARBON DIOXIDE 33.1 mmol/L (21-32); CREATININE 1.6 mg/dL (0.55-1.02); TOTAL PROTEIN 8.1 g/dL (6.4-8.2)
[2022-01-24 05:50] LABS: BAND NEUTROPHILS % 3 % (0-10); METAMYELOCYTES % 1; PLATELET MORPHOLOGY COMMENT NORMAL (NORMAL)
[2022-01-24] MEDS: NovoLIN R (or HumuLIN R) SUBCUT PRN ×2 (06:30→21:17)
[2022-01-24] MEDS: SOLU-Medrol 40 MG VIAL IVP SCH ×3 (06:30→21:16)
--- NOTE | 2022-01-24 07:40 | RAD ---
HISTORYSOBSTUDYCHEST, 1 [id number]/25/22FINDINGSThe trachea is midline. The cardiac silhouette is within normal limits. The lungs are clear without focal infiltrate or effusion. The bony thorax is unremarkable.IMPRESSIONNo acute cardiopulmonary abnormality or significant change from prior examination.Electronically signed by: ROSELINE SHORE (Jan 24, 2022 07:39:05)
[2022-01-24] MEDS ORDERED: ZESTRIL TAB 20 MG ONE (08:07)
[2022-01-24] MEDS: ROBITUSSIN DM PO SCH ×4 (08:30→21:15)
[2022-01-24] MEDS: LASIX IVP SCH ×2 (08:30→18:17)
[2022-01-24] MEDS: PLAVIX PO SCH (08:30)
[2022-01-24] MEDS: ZESTRIL TAB 20 MG PO SCH (08:30)
[2022-01-24] MEDS: PROTONIX INJ 40 MG VIAL IVP SCH (08:30)
[2022-01-24] MEDS: VSL#3 PO SCH (08:30)
[2022-01-24] MEDS: LEVAQUIN PREMIX IV 500 MG 500 MG/100 ML BAG IV SCH (08:30)
[2022-01-24] MEDS: LOVENOX INJ 30 MG SYR SC SCH (08:30)
[2022-01-24] MEDS: PULMICORT NEB TX 0.5 MG NEB SCH ×2 (09:35→21:05)
[2022-01-24] MEDS: ROCEPHIN VIAL 1 GRAM 1 G in NS 100 ML IV 100 ML IV SCH (10:30)
[2022-01-24] MEDS: NS 1/2 1,000 ML IV 1,000 ML IV SCH (11:02)
[2022-01-24] MEDS: SNACK - Diabetic Appropriate PO SCH (21:09)
--- NOTE | 2022-01-24 21:54 | PCM.PROG ---
Progress Note - Progress Note for Day of Date of Exam: 01/23/22 - Subjective Subjective: IS A 56 YEAR OLD PATIENT OF . SHE IS CURRENTLY BEING TREATED FOR RESPIRATORY DISTRESS, PNEUMONIA, ACUTE ON CHRONIC HYPERCAPNIA, COPD WITH ACUTE BRONCHITIS. SHE IS CURRENTLY UTILIZING OXYGEN VIA NASAL CANNULA AT 3-4 LPM. TODAY, SHE IS ALERT AND ORIENTED, WALKING AROUND ROOM WHEN WE ARRIVE. SHE CONTINUES WITH COMPLAINTS OF SHORTNESS OF BREATH AT TIMES, BUT REPORTS IMPROVEMENT IN SYMPTOMS SINCE ADMISSION. ON EXAMINATION, HEART IS REGULAR IN RATE AND RHYTHM. BILATERAL LUNGS ARE NOTED WITH DIMINISHED LUNG SOUNDS THROUGHOUT. ABDOMEN IS ROUND, SOFT, AND NON-TENDER WITH NORMAL BOWEL SOUNDS IN ALL QUADRANTS. TRACE BILATERAL LOWER EXTREMITY EDEMA NOTED. HER VITALS THIS MORNING ARE: 97.9-78-22-93%-114/58. LABS WERE OBTAINED. WBC 13.0, HGB 14.8, HCT 43.7, SODIUM 135, POTASSIUM 4.8, CHLORIDE 92, CARBON DIOXIDE 35.1, BUN 58, CREATININE 1.55, GLUCOSE 160, CALCIUM 9.7, AST 21, ALT 31, ALK PHOS 88, TOTAL PROTEIN 8.6, ALBUMIN 3.2. ABG REVEALED: PH 7.450, PC02 67, P02 60, HC03 46.6, 02 SAT 92, A-A GRADIENT 141, FI02 40. A CHEST XRAY WAS OBTAINED AND REVEALED: The trachea is midline. The cardiac silhouette is within normal limits. The lungs are clear without focal infiltrate or effusion. The bony thorax is unremarkable. SHE IS CURRENTLY RECEIVING 1/2NS AT [facility], ROCEPHIN 1G IV DAILY, LEVAQUIN 500MG IV DAILY, FUROSEMIDE 20MG IV BID, DUONEBS Q4H, PULMICORT NEBS BID, SOLU-MEDROL 40MG IV Q8H, LOVENOX 30MG SC DAILY, ROBITUSSIN DM 10ML PO QID, HUMULIN R SLIDING SCALE, OTBS ACHS, PROTONIX 40MG IV DAILY, PLAVIX 75MG PO DAILY, PRIOBIOTICS, LISINOPRIL 20MG PO DAILY. WE WILL CONTINUE WITH CURRENT PLAN OF CARE TODAY. OTHERWISE, WE PLAN TO FOLLOW-UP WITH AM LABS AND CONTINUE TO MONITOR. TIME SPENT ON CLINICAL ASSESSMENT, REVIEWING LABS AND IMAGING, DECISION MAKING, AND DOCUMENTATION GREATER THAN 45 MINUTES. - Past Medical Family Social History Past Med/Fam/Surg Hx: No changes since H&P Allergies: Allergies sodium phosphate [From Fleet Enema] Allergy (Verified 09/02/19 21:15) - Review of Systems ROS: No change since H&P - Vital Signs and I&O's Vital Signs: Temperature 97.9 F Pulse Rate [Right Brachial] 75 Pulse Rate 75 Respiratory Rate 22 Blood Pressure [Left Arm] 106/50 Blood Pressure [Right Arm] 140/73 Blood Pressure 119/56 O2 Sat by Pulse Oximetry 91 Intake and Output: Intake & Output 01/22/22 01/23/22 01/24/22 01/25/22 11:59 11:59 11:59 11:59 Intake Total 1639 / 1639 1957 1360 / 1360 720 / 720 Output Total 5175 / 5175 Balance -3536 / -3536 1957 1360 / 1360 720 / 720 - Physical Exam Oriented: Normal Eyes: Normal Ear: Normal Nose: Normal Respiratory: Generalized, Diminished Cardiovascular: Normal, Edema : Normal Auscultation: Bowel Sounds: Normal Palpation: Normal Tenderness: Normal Skin: Red (MILD BILATERAL ANTERIOR LOWER EXTREMITY TENDERNESS) Musculoskeletal: Normal, Back:Lumbar, Tender Psychiatric: Normal Mood Description: Calm Affect: Anxious Speech Pattern: Clear, Appropriate - Laboratory and Diagnostics Result Diagrams: 01/24/22 04:00 01/24/22 04:00 Labs: 01/18/22 17:00 Blood Blood Culture - Final 01/18/22 16:55 Blood Blood Culture - Final 01/18/22 15:57 Sputum - Expectorated Sputum Sputum Culture - Final Stenotrophomonas Maltophilia 01/18/22 15:57 Sputum - Expectorated Sputum - Final 01/18/22 18:35 Urine,Clean Catch Urine Culture - Final Laboratory WBC 11.6 X10^3/uL (3.6-10.0) H 01/24/22 04:00 RBC 4.33 X10^6/uL (3.5-5.4) 01/24/22 04:00 Hgb 14.5 g/dL (12.0-16.0) 01/24/22 04:00 Hct 43.2 % (36.0-47.0) 01/24/22 04:00 MCV 99.9 fL (80.0-100.0) 01/24/22 04:00 MCH 33.5 pg (27.0-34.0) 01/24/22 04:00 MCHC 33.6 g/dL (33.0-35.0) 01/24/22 04:00 RDW 15.8 % (11.6-16.5) 01/24/22 04:00 Plt Count 291 X10^3/uL (150.0-450.0) 01/24/22 04:00 Plt Count Comment Adequate (ADEQUATE) 01/24/22 04:00 MPV 9.0 fL (7.4-11.0) 01/24/22 04:00 Neut % (Auto) 91.7 % (42.0-75.0) H 01/24/22 04:00 Lymph % (Auto) 5.0 % (21.0-51.0) L 01/24/22 04:00 [place] % (Auto) 2.9 % (0.0-13.0) 01/24/22 04:00 Eos % (Auto) 0.2 % (0.9-2.9) L 01/24/22 04:00 Baso % (Auto) 0.2 % (0.2-1.0) 01/24/22 04:00 Neut # (Auto) 10.7 x10^3/uL (2.2-4.8) H 01/24/22 04:00 Lymph # (Auto) 0.6 X10^3/uL (1.3-2.9) L 01/24/22 04:00 [place] # (Auto) 0.3 x10^3/uL (0.3-0.8) 01/24/22 04:00 Eos # (Auto) 0.0 x10^3/uL (0.0-0.2) 01/24/22 04:00 Baso # (Auto) 0.0 X10^3/uL (0.0-0.1) 01/24/22 04:00 Absolute Nucleated RBC 0.0 /100WBC 01/24/22 04:00 Total Counted 100 01/24/22 04:00 Neutrophils % (Manual) 84 % (39-76) H 01/24/22 04:00 Band Neutrophils % 3 % (0-10) 01/24/22 04:00 Lymphocytes % (Manual) 7 % (13-43) L 01/24/22 04:00 Monocytes % (Manual) 5 % (4-9) 01/24/22 04:00 Metamyelocytes % 1 01/24/22 04:00 Plt Morphology Comment Normal (NORMAL) 01/24/22 04:00 RBC Morphology Normal (NORMAL) 01/24/22 04:00 Sample Site Lr 01/23/22 05:05 ABG pH 7.450 (7.35-7.45) 01/23/22 05:05 ABG pCO2 67.0 mmHg (35.0-45.0) H* 01/23/22 05:05 ABG pO2 60.0 mmHg (80.0-100.0) L 01/23/22 05:05 ABG HCO3 46.6 mmol/L (22-26) H* 01/23/22 05:05 ABG O2 Saturation 92.0 % (90-100) 01/23/22 05:05 ABG Base Excess 19.1 mmol/L (-2.0-2.0) H 01/23/22 05:05 Marquise Test Pos 01/23/22 05:05 A-a Gradient 141.0 mmHg 01/23/22 05:05 FiO2 40.0 01/23/22 05:05 Blood Gas Comments Geo well ae 01/23/22 05:05 Sodium 134 mmol/L (136-145) L 01/24/22 04:00 Corrected Sodium 135 mmol/L (136-145) L 01/24/22 04:00 Potassium 4.5 mmol/L (3.5-5.1) 01/24/22 04:00 Chloride 95 mmol/L (98-107) L 01/24/22 04:00 Carbon Dioxide 33.1 mmol/L (21-32) H 01/24/22 04:00 BUN 62 mg/dL (7-18) H 01/24/22 04:00 Creatinine 1.60 mg/dL (0.55-1.02) H 01/24/22 04:00 Est GFR (MDRD) Af Amer 43 (>60) L 01/24/22 04:00 Est GFR (MDRD) Non-Af 35 (>60) L 01/24/22 04:00 Glucose 162 mg/dL (65-99) H 01/24/22 04:00 POC Glucose (mg/dL) 233 mg/dL (65-99) H 01/24/22 20:58 Calcium 9.3 mg/dL (8.5-10.1) 01/24/22 04:00 Corrected Calcium 10.0 mg/dL (8.5-10.1) 01/24/22 04:00 Total Bilirubin 0.30 mg/dL (0.2-1.0) 01/24/22 04:00 AST 25 Units/L (15-37) 01/24/22 04:00 ALT 37 Units/L (12-78) 01/24/22 04:00 Alkaline Phosphatase 83 Units/L (46-116) 01/24/22 04:00 Creatine Kinase 89 Units/L (26-192) 01/19/22 01:05 CK-MB (CK-2) 1.1 ng/mL (0-4.0) 01/19/22 01:05 CK/CKMB % Calc 1.2 % (<4) 01/19/22 01:05 Troponin I High Sens 6.2 ng/L (4.0-60.0) 01/19/22 01:05 B-Natriuretic Peptide 11.4 pg/mL (0-79) 01/24/22 04:00 Total Protein 8.1 g/dL (6.4-8.2) 01/24/22 04:00 Albumin 3.1 g/dL (3.4-5.0) L 01/24/22 04:00 Globulin 5.0 g/dL (2.5-4.5) H 01/24/22 04:00 Albumin/Globulin Ratio 0.6 Ratio (1.1-2.1) L 01/24/22 04:00 Specimen Type Catherized urine 01/18/22 18:35 Urine Color Yellow (YELLOW) 01/18/22 18:35 Urine Appearance Clear (CLEAR) 01/18/22 18:35 Urine pH 5.0 (5.0 - 8.0) 01/18/22 18:35 Ur Specific [place] 1.010 (1.000-1.030) 01/18/22 18:35 Urine Protein 2+ (NEGATIVE) 01/18/22 18:35 Urine Glucose (UA) Negative (NEGATIVE) 01/18/22 18:35 Urine Ketones Negative (NEGATIVE) 01/18/22 18:35 Urine Blood 1+ (NEGATIVE) 01/18/22 18:35 Urine Nitrite Negative (NEGATIVE) 01/18/22 18:35 Urine Bilirubin Negative (NEGATIVE) 01/18/22 18:35 Urine Urobilinogen Normal (NORMAL) 01/18/22 18:35 Ur Leukocyte Esterase Negative (NEGATIVE) 01/18/22 18:35 Urine RBC 0-2 /HPF (0-3) 01/18/22 18:35 Urine WBC 0-2 /HPF (0-5) 01/18/22 18:35 Ur Squamous Epith Cells Rare /HPF (NEGATIVE) 01/18/22 18:35 Urine Bacteria Negative /HPF (NEGATIVE) 01/18/22 18:35 Granular Casts Few /LPF (NEGATIVE) 01/18/22 18:35 Ur Culture Indicated? No/not indicated 01/18/22 18:35 SARS-CoV-2 (PCR) Negative (NEGATIVE) 01/18/22 14:40 - Plan (1) Acute respiratory distress Status: Acute (2) Pneumonia Status: Acute Qualifiers: Pneumonia type: due to unspecified organism Laterality: bilateral Lung location: lower lobe of lung Qualified Code(s): J18.9 - Pneumonia, unspecified organism (3) COPD exacerbation Status: Acute (4) Hypercapnemia Status: Acute (5) Acute renal insufficiency Status: Acute
--- NOTE | 2022-01-24 21:59 | PCM.PROG ---
Progress Note - Progress Note for Day of Date of Exam: 01/24/22 - Subjective Subjective: IS A 56 YEAR OLD PATIENT OF . SHE IS CURRENTLY BEING TREATED FOR RESPIRATORY DISTRESS, PNEUMONIA, ACUTE ON CHRONIC HYPERCAPNIA, COPD WITH ACUTE BRONCHITIS. SHE IS CURRENTLY UTILIZING OXYGEN VIA NASAL CANNULA AT 2-3 LPM. TODAY, SHE IS ALERT AND ORIENTED, SITTING IN CHAIR ON MORNING ROUNDS. SHE CONTINUES WITH COMPLAINTS OF SHORTNESS OF BREATH AT TIMES, BUT REPORTS SLIGHT IMPROVEMENTS SINCE YESTERDAY. ON EXAMINATION, HEART IS REGULAR IN RATE AND RHYTHM. BILATERAL LUNGS ARE NOTED WITH DIMINISHED LUNG SOUNDS THROUGHOUT. ABDOMEN IS ROUND, SOFT, AND NON-TENDER WITH NORMAL BOWEL SOUNDS IN ALL QUADRANTS. TRACE BILATERAL LOWER EXTREMITY EDEMA NOTED. HER VITALS THIS MORNING ARE: 97.8-74-20-94%-132/61. LABS WERE OBTAINED. WBC 11.6, RBC 4.33, HGB 14.5, HCT 43.2, SODIUM 134, POTASSIUM 4.5, CHLORIDE 95, CARBON DIOXIDE 33.1, BUN 62, CREATININE 1.60, GLUCOSE 162, TOTAL PROTEIN 8.1, ALBUMIN 3.1. A CHEST XRAY WAS OBTAINED AND REVEALED: The trachea is midline. The cardiac silhouette is within normal limits. The lungs are clear without focal infiltrate or effusion. The bony thorax is unremarkable. SHE IS CURRENTLY RECEIVING 1/2NS AT [facility], ROCEPHIN 1G IV DAILY, LEVAQUIN 500MG IV DAILY, FUROSEMIDE 20MG IV BID, DUONEBS Q4H, PULMICORT NEBS BID, SOLU-MEDROL 40MG IV Q8H, LOVENOX 30MG SC DAILY, ROBITUSSIN DM 10ML PO QID, HUMULIN R SLIDING SCALE, OTBS ACHS, PROTONIX 40MG IV DAILY, PLAVIX 75MG PO DAILY, PRIOBIOTICS, LISINOPRIL 20MG PO DAILY. WE WILL CONTINUE WITH CURRENT PLAN OF CARE TODAY. OTHERWISE, WE PLAN TO FOLLOW-UP WITH AM LABS AND CONTINUE TO MONITOR. TIME SPENT ON CLINICAL ASSESSMENT, REVIEWING LABS AND IMAGING, DECISION MAKING, AND DOCUMENTATION GREATER THAN 45 MINUTES. - Past Medical Family Social History Past Med/Fam/Surg Hx: No changes since H&P Allergies: Allergies sodium phosphate [From Fleet Enema] Allergy (Verified 09/02/19 21:15) - Review of Systems ROS: No change since H&P - Vital Signs and I&O's Vital Signs: Temperature 97.9 F Pulse Rate [Right Brachial] 75 Pulse Rate 75 Respiratory Rate 22 Blood Pressure [Left Arm] 106/50 Blood Pressure [Right Arm] 140/73 Blood Pressure 119/56 O2 Sat by Pulse Oximetry 91 Intake and Output: Intake & Output 01/22/22 01/23/22 01/24/22 01/25/22 11:59 11:59 11:59 11:59 Intake Total 1639 / 1639 1957 1360 / 1360 720 / 720 Output Total 5175 / 5175 Balance -3536 / -3536 1957 1360 / 1360 720 / 720 - Physical Exam Oriented: Normal Eyes: Normal Ear: Normal Nose: Normal Respiratory: Generalized, Diminished Cardiovascular: Normal, Edema : Normal Auscultation: Bowel Sounds: Normal Tenderness: Normal Skin: Red (MILD BILATERAL ANTERIOR LOWER EXTREMITY TENDERNESS) Musculoskeletal: Normal, Back:Lumbar, Tender Psychiatric: Normal Mood Description: Calm Affect: Anxious Speech Pattern: Clear, Appropriate - Laboratory and Diagnostics Result Diagrams: 01/24/22 04:00 01/24/22 04:00 Labs: 01/18/22 17:00 Blood Blood Culture - Final 01/18/22 16:55 Blood Blood Culture - Final 01/18/22 15:57 Sputum - Expectorated Sputum Sputum Culture - Final Stenotrophomonas Maltophilia 01/18/22 15:57 Sputum - Expectorated Sputum - Final 01/18/22 18:35 Urine,Clean Catch Urine Culture - Final Laboratory WBC 11.6 X10^3/uL (3.6-10.0) H 01/24/22 04:00 RBC 4.33 X10^6/uL (3.5-5.4) 01/24/22 04:00 Hgb 14.5 g/dL (12.0-16.0) 01/24/22 04:00 Hct 43.2 % (36.0-47.0) 01/24/22 04:00 MCV 99.9 fL (80.0-100.0) 01/24/22 04:00 MCH 33.5 pg (27.0-34.0) 01/24/22 04:00 MCHC 33.6 g/dL (33.0-35.0) 01/24/22 04:00 RDW 15.8 % (11.6-16.5) 01/24/22 04:00 Plt Count 291 X10^3/uL (150.0-450.0) 01/24/22 04:00 Plt Count Comment Adequate (ADEQUATE) 01/24/22 04:00 MPV 9.0 fL (7.4-11.0) 01/24/22 04:00 Neut % (Auto) 91.7 % (42.0-75.0) H 01/24/22 04:00 Lymph % (Auto) 5.0 % (21.0-51.0) L 01/24/22 04:00 [place] % (Auto) 2.9 % (0.0-13.0) 01/24/22 04:00 Eos % (Auto) 0.2 % (0.9-2.9) L 01/24/22 04:00 Baso % (Auto) 0.2 % (0.2-1.0) 01/24/22 04:00 Neut # (Auto) 10.7 x10^3/uL (2.2-4.8) H 01/24/22 04:00 Lymph # (Auto) 0.6 X10^3/uL (1.3-2.9) L 01/24/22 04:00 [place] # (Auto) 0.3 x10^3/uL (0.3-0.8) 01/24/22 04:00 Eos # (Auto) 0.0 x10^3/uL (0.0-0.2) 01/24/22 04:00 Baso # (Auto) 0.0 X10^3/uL (0.0-0.1) 01/24/22 04:00 Absolute Nucleated RBC 0.0 /100WBC 01/24/22 04:00 Total Counted 100 01/24/22 04:00 Neutrophils % (Manual) 84 % (39-76) H 01/24/22 04:00 Band Neutrophils % 3 % (0-10) 01/24/22 04:00 Lymphocytes % (Manual) 7 % (13-43) L 01/24/22 04:00 Monocytes % (Manual) 5 % (4-9) 01/24/22 04:00 Metamyelocytes % 1 01/24/22 04:00 Plt Morphology Comment Normal (NORMAL) 01/24/22 04:00 RBC Morphology Normal (NORMAL) 01/24/22 04:00 Sample Site Lr 01/23/22 05:05 ABG pH 7.450 (7.35-7.45) 01/23/22 05:05 ABG pCO2 67.0 mmHg (35.0-45.0) H* 01/23/22 05:05 ABG pO2 60.0 mmHg (80.0-100.0) L 01/23/22 05:05 ABG HCO3 46.6 mmol/L (22-26) H* 01/23/22 05:05 ABG O2 Saturation 92.0 % (90-100) 01/23/22 05:05 ABG Base Excess 19.1 mmol/L (-2.0-2.0) H 01/23/22 05:05 Marquise Test Pos 01/23/22 05:05 A-a Gradient 141.0 mmHg 01/23/22 05:05 FiO2 40.0 01/23/22 05:05 Blood Gas Comments Geo well ae 01/23/22 05:05 Sodium 134 mmol/L (136-145) L 01/24/22 04:00 Corrected Sodium 135 mmol/L (136-145) L 01/24/22 04:00 Potassium 4.5 mmol/L (3.5-5.1) 01/24/22 04:00 Chloride 95 mmol/L (98-107) L 01/24/22 04:00 Carbon Dioxide 33.1 mmol/L (21-32) H 01/24/22 04:00 BUN 62 mg/dL (7-18) H 01/24/22 04:00 Creatinine 1.60 mg/dL (0.55-1.02) H 01/24/22 04:00 Est GFR (MDRD) Af Amer 43 (>60) L 01/24/22 04:00 Est GFR (MDRD) Non-Af 35 (>60) L 01/24/22 04:00 Glucose 162 mg/dL (65-99) H 01/24/22 04:00 POC Glucose (mg/dL) 233 mg/dL (65-99) H 01/24/22 20:58 Calcium 9.3 mg/dL (8.5-10.1) 01/24/22 04:00 Corrected Calcium 10.0 mg/dL (8.5-10.1) 01/24/22 04:00 Total Bilirubin 0.30 mg/dL (0.2-1.0) 01/24/22 04:00 AST 25 Units/L (15-37) 01/24/22 04:00 ALT 37 Units/L (12-78) 01/24/22 04:00 Alkaline Phosphatase 83 Units/L (46-116) 01/24/22 04:00 Creatine Kinase 89 Units/L (26-192) 01/19/22 01:05 CK-MB (CK-2) 1.1 ng/mL (0-4.0) 01/19/22 01:05 CK/CKMB % Calc 1.2 % (<4) 01/19/22 01:05 Troponin I High Sens 6.2 ng/L (4.0-60.0) 01/19/22 01:05 B-Natriuretic Peptide 11.4 pg/mL (0-79) 01/24/22 04:00 Total Protein 8.1 g/dL (6.4-8.2) 01/24/22 04:00 Albumin 3.1 g/dL (3.4-5.0) L 01/24/22 04:00 Globulin 5.0 g/dL (2.5-4.5) H 01/24/22 04:00 Albumin/Globulin Ratio 0.6 Ratio (1.1-2.1) L 01/24/22 04:00 Specimen Type Catherized urine 01/18/22 18:35 Urine Color Yellow (YELLOW) 01/18/22 18:35 Urine Appearance Clear (CLEAR) 01/18/22 18:35 Urine pH 5.0 (5.0 - 8.0) 01/18/22 18:35 Ur Specific [place] 1.010 (1.000-1.030) 01/18/22 18:35 Urine Protein 2+ (NEGATIVE) 01/18/22 18:35 Urine Glucose (UA) Negative (NEGATIVE) 01/18/22 18:35 Urine Ketones Negative (NEGATIVE) 01/18/22 18:35 Urine Blood 1+ (NEGATIVE) 01/18/22 18:35 Urine Nitrite Negative (NEGATIVE) 01/18/22 18:35 Urine Bilirubin Negative (NEGATIVE) 01/18/22 18:35 Urine Urobilinogen Normal (NORMAL) 01/18/22 18:35 Ur Leukocyte Esterase Negative (NEGATIVE) 01/18/22 18:35 Urine RBC 0-2 /HPF (0-3) 01/18/22 18:35 Urine WBC 0-2 /HPF (0-5) 01/18/22 18:35 Ur Squamous Epith Cells Rare /HPF (NEGATIVE) 01/18/22 18:35 Urine Bacteria Negative /HPF (NEGATIVE) 01/18/22 18:35 Granular Casts Few /LPF (NEGATIVE) 01/18/22 18:35 Ur Culture Indicated? No/not indicated 01/18/22 18:35 SARS-CoV-2 (PCR) Negative (NEGATIVE) 01/18/22 14:40 - Plan (1) Acute respiratory distress Status: Acute (2) Pneumonia Status: Acute Qualifiers: Pneumonia type: due to unspecified organism Laterality: bilateral Lung location: lower lobe of lung Qualified Code(s): J18.9 - Pneumonia, unspecified organism (3) COPD exacerbation Status: Acute (4) Hypercapnemia Status: Acute (5) Acute renal insufficiency Status: Acute
[2022-01-25] MEDS: DUONEB 0.5 MG/3 MG (3 mL) NEB SCH ×6 (01:10→20:40)
[2022-01-25 04:43] LABS: BASOPHILS % (AUTO) 0.4 % (0.2-1.0); HEMATOCRIT 40.3 % (36.0-47.0); HEMOGLOBIN 13.6 g/dL (12.0-16.0); LYMPHOCYTES # (AUTO) 0.5 X10^3/uL (1.3-2.9); LYMPHOCYTES % (AUTO) 5.2 % (21.0-51.0); MEAN CORPUSCULAR HEMOGLOBIN 33.7 pg (27.0-34.0); MEAN CORPUSCULAR HGB CONC 33.7 g/dL (33.0-35.0); MEAN PLATELET VOLUME 8.9 fL (7.4-11.0); MONOCYTES # (AUTO) 0.3 x10^3/uL (0.3-0.8); MONOCYTES % (AUTO) 3.5 % (0.0-13.0); NEUTROPHILS # (AUTO) 8.6 x10^3/uL (2.2-4.8); NEUTROPHILS % (AUTO) 90.9 % (42.0-75.0); RED BLOOD COUNT 4.03 X10^6/uL (3.5-5.4); RED CELL DISTRIBUTION WIDTH 15.6 % (11.6-16.5); WHITE BLOOD COUNT 9.4 X10^3/uL (3.6-10.0)
[2022-01-25 05:14] LABS: ALBUMIN 2.9 g/dL (3.4-5.0); CALCIUM 8.8 mg/dL (8.5-10.1); CARBON DIOXIDE 35.4 mmol/L (21-32); COR CA(FOR HYPOALB) 9.7 mg/dL (8.5-10.1); CREATININE 1.55 mg/dL (0.55-1.02); TOTAL PROTEIN 7.1 g/dL (6.4-8.2)
--- NOTE | 2022-01-25 05:36 | RAD ---
HISTORYF/U PNEUMONIA; SOB Relevant Clinical InformationSTUDYCHEST, 1 [id number] trachea is midline. The cardiac silhouette is unremarkable. The lungs are clear without focal infiltrate or effusion. The bony thorax is unremarkable.IMPRESSIONNo acute cardiopulmonary findings .Electronically signed by: Jonathan Aguirre (Jan 25, 2022 05:35:07)
[2022-01-25 05:42] LABS: PLATELET MORPHOLOGY COMMENT NORMAL (NORMAL)
[2022-01-25] MEDS: SOLU-Medrol 40 MG VIAL IVP SCH ×3 (06:36→21:30)
[2022-01-25 08:47] LABS: ABG ALLEN TEST POS; ABG HCO3 37.6 mmol/L (22-26)
[2022-01-25] MEDS: PULMICORT NEB TX 0.5 MG NEB SCH ×2 (09:20→20:40)
[2022-01-25] MEDS ORDERED: ZESTRIL TAB 20 MG ONE (09:20)
[2022-01-25] MEDS: PLAVIX PO SCH (09:45)
[2022-01-25] MEDS: ZESTRIL TAB 20 MG PO SCH (09:45)
[2022-01-25] MEDS: VSL#3 PO SCH (09:45)
[2022-01-25] MEDS: ROBITUSSIN DM PO SCH ×4 (09:45→21:30)
[2022-01-25] MEDS: PROTONIX INJ 40 MG VIAL IVP SCH (09:45)
[2022-01-25] MEDS: ROCEPHIN VIAL 1 GRAM 1 G in NS 100 ML IV 100 ML IV SCH (09:45)
[2022-01-25] MEDS: LOVENOX INJ 30 MG SYR SC SCH (09:45)
[2022-01-25] MEDS: LASIX IVP SCH ×2 (09:45→17:38)
[2022-01-25] MEDS: LEVAQUIN PREMIX IV 500 MG 500 MG/100 ML BAG IV SCH (11:00)
[2022-01-25] MEDS: NS 1/2 1,000 ML IV 1,000 ML IV SCH (18:37)
[2022-01-25] MEDS: SNACK - Diabetic Appropriate PO SCH (21:00)
[2022-01-25] MEDS: NovoLIN R (or HumuLIN R) SUBCUT PRN (21:30)
[2022-01-26] MEDS: DUONEB 0.5 MG/3 MG (3 mL) NEB SCH ×6 (00:40→21:02)
[2022-01-26 04:24] LABS: MEAN CORPUSCULAR HEMOGLOBIN 34.3 pg (27.0-34.0)
[2022-01-26 04:27] LABS: BASOPHILS % (AUTO) 0.2 % (0.2-1.0); LYMPHOCYTES # (AUTO) 0.5 X10^3/uL (1.3-2.9); LYMPHOCYTES % (AUTO) 5.3 % (21.0-51.0); MEAN CORPUSCULAR HGB CONC 34.1 g/dL (33.0-35.0); MEAN CORPUSCULAR VOLUME 100.5 fL (80.0-100.0); MONOCYTES # (AUTO) 0.3 x10^3/uL (0.3-0.8); MONOCYTES % (AUTO) 2.9 % (0.0-13.0); NEUTROPHILS # (AUTO) 9.2 x10^3/uL (2.2-4.8); NEUTROPHILS % (AUTO) 91.6 % (42.0-75.0); RED BLOOD COUNT 4.08 X10^6/uL (3.5-5.4); RED CELL DISTRIBUTION WIDTH 15.8 % (11.6-16.5); WHITE BLOOD COUNT 10.1 X10^3/uL (3.6-10.0)
[2022-01-26 04:54] LABS: CALCIUM 8.9 mg/dL (8.5-10.1); COR CA(FOR HYPOALB) 9.7 mg/dL (8.5-10.1); CREATININE 1.34 mg/dL (0.55-1.02); TOTAL PROTEIN 7.1 g/dL (6.4-8.2)
[2022-01-26 06:02] LABS: BAND NEUTROPHILS % 2 % (0-10); METAMYELOCYTES % 2
[2022-01-26 06:04] LABS: PLATELET MORPHOLOGY COMMENT NORMAL (NORMAL)
--- NOTE | 2022-01-26 06:20 | RAD ---
HISTORYShortness of breath, follow-up pneumoniaSTUDYChest AP [id number]/27/2022FINDINGSHear t is upper limits normal in size. No congestive heart failure is noted. No definite acute alveolar infiltrates or pleural effusions are identified. Bony thorax is unremarkable. No significant abnormality identifiedIMPRESSIONElectronically signed by: GRANT KING (Jan 26, 2022 06:18:08)
[2022-01-26] MEDS: SOLU-Medrol 40 MG VIAL IVP SCH ×3 (06:30→21:04)
[2022-01-26] MEDS: PULMICORT NEB TX 0.5 MG NEB SCH ×2 (09:15→21:02)
[2022-01-26] MEDS ORDERED: ZESTRIL TAB 20 MG ONE (09:36)
[2022-01-26] MEDS: LOVENOX INJ 30 MG SYR SC SCH (09:41)
[2022-01-26] MEDS: LEVAQUIN PREMIX IV 500 MG 500 MG/100 ML BAG IV SCH (09:43)
[2022-01-26] MEDS: PLAVIX PO SCH (09:43)
[2022-01-26] MEDS: PROTONIX INJ 40 MG VIAL IVP SCH (09:44)
[2022-01-26] MEDS: ROBITUSSIN DM PO SCH ×4 (09:44→20:29)
[2022-01-26] MEDS: ZESTRIL TAB 20 MG PO SCH (09:45)
[2022-01-26] MEDS: LASIX IVP SCH ×2 (09:51→18:00)
[2022-01-26] MEDS: VSL#3 PO SCH (10:00)
[2022-01-26] MEDS: ROCEPHIN VIAL 1 GRAM 1 G in NS 100 ML IV 100 ML IV SCH (10:00)
--- NOTE | 2022-01-26 14:00 | PCM.PROG ---
Progress Note - Subjective Subjective: Patient is a 56 year old wf who was admitted due to COPD exacerbation, Acute on chronic resp failure.. Patient continues to require oxygen. Patient is currently pending a trilogy machine for home use. A non invasive volume ventilator for nocturnal and daytime use as needed to decreaesd risk of exacerbation, Home Bi-level therapy with or without a rate would be ineffective as patient requires a volume mode to help reduce high CO2 levels due to severity of condition. Patient is alert and oriented sitting up in chair during morning rounds. Patient continues to experience SOB which is nearly back to baseline per patient. Labs and vitals WNL. CXR reveals COPD. Patient continues to receive IV abx and breathing treatment.s Pending trilogy arranged. Plan for dc when trilogy available. - Past Medical Family Social History Past Med/Fam/Surg Hx: No changes since H&P Allergies: Allergies sodium phosphate [From Fleet Enema] Allergy (Verified 09/02/19 21:15) - Review of Systems ROS: No change since H&P - Vital Signs and I&O's Vital Signs: Temperature 98.8 F Pulse Rate [Right Brachial] 76 Pulse Rate 92 Respiratory Rate 22 Blood Pressure [Left Arm] 118/58 Blood Pressure [Right Arm] 140/73 Blood Pressure 119/56 O2 Sat by Pulse Oximetry 84 Intake and Output: Intake & Output 01/23/22 01/24/22 01/25/22 01/26/22 23:59 23:59 23:59 23:59 Intake Total 1360 / 1360 1360 / 1360 1880 / 1880 540 / 540 Balance 1360 / 1360 1360 / 1360 1880 / 1880 540 / 540 - Physical Exam Oriented: Normal Eyes: Normal Ear: Normal Nose: Normal Throat: Normal Respiratory: Generalized, Diminished Cardiovascular: Normal : Normal Auscultation: Bowel Sounds: Normal Palpation: Normal Tenderness: Normal Skin: Normal Musculoskeletal: Normal, Back:Lumbar, Tender Psychiatric: Normal Mood Description: Calm Affect: Normal Speech Pattern: Clear, Appropriate - Laboratory and Diagnostics Result Diagrams: 01/26/22 03:50 01/26/22 03:50 Labs: 01/18/22 17:00 Blood Blood Culture - Final 01/18/22 16:55 Blood Blood Culture - Final 01/18/22 15:57 Sputum - Expectorated Sputum Sputum Culture - Final Stenotrophomonas Maltophilia 01/18/22 15:57 Sputum - Expectorated Sputum - Final 01/18/22 18:35 Urine,Clean Catch Urine Culture - Final Laboratory WBC 10.1 X10^3/uL (3.6-10.0) H 01/26/22 03:50 RBC 4.08 X10^6/uL (3.5-5.4) 01/26/22 03:50 Hgb 14.0 g/dL (12.0-16.0) 01/26/22 03:50 Hct 41.0 % (36.0-47.0) 01/26/22 03:50 MCV 100.5 fL (80.0-100.0) H 01/26/22 03:50 MCH 34.3 pg (27.0-34.0) H 01/26/22 03:50 MCHC 34.1 g/dL (33.0-35.0) 01/26/22 03:50 RDW 15.8 % (11.6-16.5) 01/26/22 03:50 Plt Count 258 X10^3/uL (150.0-450.0) 01/26/22 03:50 Plt Count Comment Adequate (ADEQUATE) 01/26/22 03:50 MPV 9.0 fL (7.4-11.0) 01/26/22 03:50 Neut % (Auto) 91.6 % (42.0-75.0) H 01/26/22 03:50 Lymph % (Auto) 5.3 % (21.0-51.0) L 01/26/22 03:50 [place] % (Auto) 2.9 % (0.0-13.0) 01/26/22 03:50 Eos % (Auto) 0.0 % (0.9-2.9) L 01/26/22 03:50 Baso % (Auto) 0.2 % (0.2-1.0) 01/26/22 03:50 Neut # (Auto) 9.2 x10^3/uL (2.2-4.8) H 01/26/22 03:50 Lymph # (Auto) 0.5 X10^3/uL (1.3-2.9) L 01/26/22 03:50 [place] # (Auto) 0.3 x10^3/uL (0.3-0.8) 01/26/22 03:50 Eos # (Auto) 0.0 x10^3/uL (0.0-0.2) 01/26/22 03:50 Baso # (Auto) 0.0 X10^3/uL (0.0-0.1) 01/26/22 03:50 Absolute Nucleated RBC 0.0 /100WBC 01/26/22 03:50 Total Counted 100 01/26/22 03:50 Neutrophils % (Manual) 86 % (39-76) H 01/26/22 03:50 Band Neutrophils % 2 % (0-10) 01/26/22 03:50 Lymphocytes % (Manual) 7 % (13-43) L 01/26/22 03:50 Monocytes % (Manual) 3 % (4-9) L 01/26/22 03:50 Metamyelocytes % 2 01/26/22 03:50 Plt Morphology Comment Normal (NORMAL) 01/26/22 03:50 RBC Morphology Abnormal (NORMAL) A 01/26/22 03:50 Macrocytosis Slight A 01/26/22 03:50 Sample Site Rra 01/25/22 08:40 ABG pH 7.420 (7.35-7.45) 01/25/22 08:40 ABG pCO2 58.0 mmHg (35.0-45.0) H* 01/25/22 08:40 ABG pO2 58.0 mmHg (80.0-100.0) L 01/25/22 08:40 ABG HCO3 37.6 mmol/L (22-26) H* 01/25/22 08:40 ABG O2 Saturation 90.0 % (90-100) 01/25/22 08:40 ABG Base Excess 11.0 mmol/L (-2.0-2.0) H 01/25/22 08:40 Marquise Test Pos 01/25/22 08:40 A-a Gradient 19.0 mmHg 01/25/22 08:40 FiO2 21.0 01/25/22 08:40 Blood Gas Comments Pt carlos well eb 01/25/22 08:40 Sodium 138 mmol/L (136-145) 01/26/22 03:50 Corrected Sodium 141 mmol/L (136-145) 01/26/22 03:50 Potassium 4.6 mmol/L (3.5-5.1) 01/26/22 03:50 Chloride 99 mmol/L (98-107) 01/26/22 03:50 Carbon Dioxide 35.0 mmol/L (21-32) H 01/26/22 03:50 BUN 56 mg/dL (7-18) H 01/26/22 03:50 Creatinine 1.34 mg/dL (0.55-1.02) H 01/26/22 03:50 Est GFR (MDRD) Af Amer 53 (>60) L 01/26/22 03:50 Est GFR (MDRD) Non-Af 43 (>60) L 01/26/22 03:50 Glucose 205 mg/dL (65-99) H 01/26/22 03:50 POC Glucose (mg/dL) 227 mg/dL (65-99) H 01/25/22 22:32 Calcium 8.9 mg/dL (8.5-10.1) 01/26/22 03:50 Corrected Calcium 9.7 mg/dL (8.5-10.1) 01/26/22 03:50 Total Bilirubin 0.30 mg/dL (0.2-1.0) 01/26/22 03:50 AST 44 Units/L (15-37) H 01/26/22 03:50 ALT 64 Units/L (12-78) 01/26/22 03:50 Alkaline Phosphatase 83 Units/L (46-116) 01/26/22 03:50 Creatine Kinase 89 Units/L (26-192) 01/19/22 01:05 CK-MB (CK-2) 1.1 ng/mL (0-4.0) 01/19/22 01:05 CK/CKMB % Calc 1.2 % (<4) 01/19/22 01:05 Troponin I High Sens 6.2 ng/L (4.0-60.0) 01/19/22 01:05 B-Natriuretic Peptide 12.9 pg/mL (0-79) 01/26/22 03:50 Total Protein 7.1 g/dL (6.4-8.2) 01/26/22 03:50 Albumin 3.0 g/dL (3.4-5.0) L 01/26/22 03:50 Globulin 4.1 g/dL (2.5-4.5) 01/26/22 03:50 Albumin/Globulin Ratio 0.7 Ratio (1.1-2.1) L 01/26/22 03:50 Specimen Type Catherized urine 01/18/22 18:35 Urine Color Yellow (YELLOW) 01/18/22 18:35 Urine Appearance Clear (CLEAR) 01/18/22 18:35 Urine pH 5.0 (5.0 - 8.0) 01/18/22 18:35 Ur Specific [place] 1.010 (1.000-1.030) 01/18/22 18:35 Urine Protein 2+ (NEGATIVE) 01/18/22 18:35 Urine Glucose (UA) Negative (NEGATIVE) 01/18/22 18:35 Urine Ketones Negative (NEGATIVE) 01/18/22 18:35 Urine Blood 1+ (NEGATIVE) 01/18/22 18:35 Urine Nitrite Negative (NEGATIVE) 01/18/22 18:35 Urine Bilirubin Negative (NEGATIVE) 01/18/22 18:35 Urine Urobilinogen Normal (NORMAL) 01/18/22 18:35 Ur Leukocyte Esterase Negative (NEGATIVE) 01/18/22 18:35 Urine RBC 0-2 /HPF (0-3) 01/18/22 18:35 Urine WBC 0-2 /HPF (0-5) 01/18/22 18:35 Ur Squamous Epith Cells Rare /HPF (NEGATIVE) 01/18/22 18:35 Urine Bacteria Negative /HPF (NEGATIVE) 01/18/22 18:35 Granular Casts Few /LPF (NEGATIVE) 01/18/22 18:35 Ur Culture Indicated? No/not indicated 01/18/22 18:35 SARS-CoV-2 (PCR) Negative (NEGATIVE) 01/18/22 14:40 - Plan (1) Acute respiratory failure Status: Acute Plan: BP MONITORING,. GENTLE IV HYDRATION, STRICT I&OS. BS CONTROL, BIPAP PRN, RESP THERAPY AND SUPPLEMENTAL O2. IV ATBX THERAPY (2) COPD (chronic obstructive pulmonary disease) Status: Acute (3) Diabetes Status: Chronic (4) Acute respiratory distress Status: Acute (5) Hypercapnemia Status: Chronic
[2022-01-26] MEDS: NS 1/2 1,000 ML IV 1,000 ML IV SCH (14:42)
[2022-01-26 15:53] VITALS: BMI 37.0
[2022-01-26] MEDS: NovoLIN R (or HumuLIN R) SUBCUT PRN ×2 (18:35→21:04)
[2022-01-26] MEDS: SNACK - Diabetic Appropriate PO SCH (20:29)
[2022-01-27] MEDS ORDERED: NS 1/2 1,000 ML IV 1,000 ML IV ONE (00:10)
[2022-01-27] MEDS: DUONEB 0.5 MG/3 MG (3 mL) NEB SCH ×6 (01:10→21:41)
[2022-01-27] MEDS: NS 1/2 1,000 ML IV 1,000 ML IV SCH ×2 (03:23→09:05)
[2022-01-27 05:34] LABS: BASOPHILS % (AUTO) 0.1 % (0.2-1.0); EOSINOPHILS % (AUTO) 0.1 % (0.9-2.9); HEMATOCRIT 42.8 % (36.0-47.0); HEMOGLOBIN 14.6 g/dL (12.0-16.0); LYMPHOCYTES # (AUTO) 0.8 X10^3/uL (1.3-2.9); LYMPHOCYTES % (AUTO) 7.6 % (21.0-51.0); MEAN CORPUSCULAR HEMOGLOBIN 34.3 pg (27.0-34.0); MEAN CORPUSCULAR HGB CONC 34.1 g/dL (33.0-35.0); MEAN CORPUSCULAR VOLUME 100.7 fL (80.0-100.0); MONOCYTES # (AUTO) 0.3 x10^3/uL (0.3-0.8); MONOCYTES % (AUTO) 2.5 % (0.0-13.0); NEUTROPHILS # (AUTO) 9.7 x10^3/uL (2.2-4.8); NEUTROPHILS % (AUTO) 89.7 % (42.0-75.0); RED BLOOD COUNT 4.25 X10^6/uL (3.5-5.4); RED CELL DISTRIBUTION WIDTH 15.5 % (11.6-16.5); WHITE BLOOD COUNT 10.8 X10^3/uL (3.6-10.0)
[2022-01-27] MEDS: SOLU-Medrol 40 MG VIAL IVP SCH ×3 (05:38→21:01)
[2022-01-27 05:50] LABS: ALBUMIN 3.2 g/dL (3.4-5.0); CALCIUM 9.2 mg/dL (8.5-10.1); CARBON DIOXIDE 34.3 mmol/L (21-32); COR CA(FOR HYPOALB) 9.8 mg/dL (8.5-10.1); CREATININE 1.2 mg/dL (0.55-1.02); TOTAL PROTEIN 7.5 g/dL (6.4-8.2)
--- NOTE | 2022-01-27 06:06 | RAD ---
HISTORYF/U SOB; RESPIRATORY DISTRESS; PNEUMONIA Relevant Clinical InformationSTUDYCHEST, 1 [id number] trachea is midline. The cardiac silhouette is unremarkable. The lungs are clear without focal infiltrate or effusion. The bony thorax is unremarkable.IMPRESSIONNo acute cardiopulmonary findings .Electronically signed by: Jonathan Aguirre (Jan 27, 2022 06:04:46)
[2022-01-27] MEDS ORDERED: ZESTRIL TAB 20 MG ONE (08:21)
[2022-01-27] MEDS: PULMICORT NEB TX 0.5 MG NEB SCH ×2 (08:50→21:41)
[2022-01-27] MEDS: PLAVIX PO SCH (08:54)
[2022-01-27] MEDS: ROBITUSSIN DM PO SCH ×4 (08:54→21:01)
[2022-01-27] MEDS: ZESTRIL TAB 20 MG PO SCH (08:55)
[2022-01-27] MEDS: VSL#3 PO SCH (08:56)
[2022-01-27] MEDS: LASIX IVP SCH ×2 (08:58→18:18)
[2022-01-27] MEDS: ROCEPHIN VIAL 1 GRAM 1 G in NS 100 ML IV 100 ML IV SCH (08:59)
[2022-01-27] MEDS: PROTONIX INJ 40 MG VIAL IVP SCH (09:05)
[2022-01-27] MEDS: LOVENOX INJ 30 MG SYR SC SCH (10:00)
[2022-01-27] MEDS: LEVAQUIN PREMIX IV 500 MG 500 MG/100 ML BAG IV SCH (10:00)
[2022-01-27] MEDS: NovoLIN R (or HumuLIN R) SUBCUT PRN (12:27)
[2022-01-27] MEDS: SNACK - Diabetic Appropriate PO SCH (21:35)
[2022-01-28] MEDS: DUONEB 0.5 MG/3 MG (3 mL) NEB SCH ×4 (00:28→12:00)
[2022-01-28 05:36] LABS: ABG BASE EXCESS 8.2 mmol/L (-2.0-2.0)
[2022-01-28 05:37] LABS: ABG ALLEN TEST POS; ABG HCO3 33.9 mmol/L (22-26)
[2022-01-28] MEDS: SOLU-Medrol 40 MG VIAL IVP SCH (06:02)
--- NOTE | 2022-01-28 06:10 | RAD ---
HISTORYCOPD, follow-up pneumoniaSTUDYChest PA and gxngwslIRMSJRGRJI05/29/2022FINDINGSHeart size is normal. Armida are normal. Lungs are well inflated and free of acute infiltrates. No pleural effusions are identified. Bony thorax is unremarkable.IMPRESSIONNo significant abnormality identifiedElectronically signed by: GRANT KING (Jan 28, 2022 06:08:29)
[2022-01-28 06:13] LABS: BASOPHILS % (AUTO) 0.1 % (0.2-1.0); EOSINOPHILS % (AUTO) 0.2 % (0.9-2.9); HEMATOCRIT 44.4 % (36.0-47.0); HEMOGLOBIN 14.9 g/dL (12.0-16.0); LYMPHOCYTES # (AUTO) 0.8 X10^3/uL (1.3-2.9); LYMPHOCYTES % (AUTO) 6.8 % (21.0-51.0); MEAN CORPUSCULAR HEMOGLOBIN 34.3 pg (27.0-34.0); MEAN CORPUSCULAR HGB CONC 33.6 g/dL (33.0-35.0); MEAN PLATELET VOLUME 9.2 fL (7.4-11.0); MONOCYTES # (AUTO) 0.3 x10^3/uL (0.3-0.8); MONOCYTES % (AUTO) 2.3 % (0.0-13.0); NEUTROPHILS # (AUTO) 10.9 x10^3/uL (2.2-4.8); NEUTROPHILS % (AUTO) 90.6 % (42.0-75.0); RED BLOOD COUNT 4.35 X10^6/uL (3.5-5.4); RED CELL DISTRIBUTION WIDTH 15.7 % (11.6-16.5)
[2022-01-28 06:23] LABS: ALBUMIN 3.2 g/dL (3.4-5.0); CALCIUM 9.2 mg/dL (8.5-10.1); CARBON DIOXIDE 34.4 mmol/L (21-32); COR CA(FOR HYPOALB) 9.8 mg/dL (8.5-10.1); CREATININE 1.66 mg/dL (0.55-1.02); TOTAL PROTEIN 7.4 g/dL (6.4-8.2)
[2022-01-28 06:31] LABS: PLATELET MORPHOLOGY COMMENT NORMAL (NORMAL)
[2022-01-28] MEDS ORDERED: ZESTRIL TAB 20 MG ONE (08:09)
[2022-01-28] MEDS: ROBITUSSIN DM PO SCH ×2 (08:40→12:41)
[2022-01-28] MEDS: PLAVIX PO SCH (08:41)
[2022-01-28] MEDS: ZESTRIL TAB 20 MG PO SCH (08:42)
[2022-01-28] MEDS: VSL#3 PO SCH (08:45)
[2022-01-28] MEDS: LASIX IVP SCH (08:45)
[2022-01-28] MEDS: LEVAQUIN PREMIX IV 500 MG 500 MG/100 ML BAG IV SCH (08:45)
[2022-01-28] MEDS: LOVENOX INJ 30 MG SYR SC SCH (08:46)
[2022-01-28] MEDS: PROTONIX INJ 40 MG VIAL IVP SCH (08:48)
[2022-01-28] MEDS: PULMICORT NEB TX 0.5 MG NEB SCH (08:57)
[2022-01-28] MEDS: ROCEPHIN VIAL 1 GRAM 1 G in NS 100 ML IV 100 ML IV SCH (10:00)
[2022-01-28 12:21] VITALS: BP 97/50
[2022-01-28] MEDS: NS 1/2 1,000 ML IV 1,000 ML IV SCH (12:22)
[2022-01-28] MEDS: NovoLIN R (or HumuLIN R) SUBCUT PRN (12:24)
== END 2022-01-28 15:15 | disposition home health service (06) | DRG 177 ==
LOC: ER 12:54 → MED/SURG 17:10
PROVIDERS: ADMIT Internal Medicine; ATTEND Internal Medicine